=== PATIENT | female | born 1960 | race Caucasian/White ===

== ENCOUNTER 2017-02-14 12:21 | Emergency (ER) | payer OTHER ==
[~2017-02-14] VITALS: Ht 160 cm; Wt 79.2 kg
[~2017-02-14 12:21] MED LIST: ASPEC81 PO; ATV/1 PO; B-CO1TAB53 PO; CETI10TA10 PO; CHOL100010 PO; ELET40TA PO; LEVO88TA3 PO; LINA1CAP PO; LISI10TA PO; MONT1TAB3 PO; MULT-506 PO; NPR500 PO; NXM/40 PO; PROM25TA16 PO; RANI300T PO; SERT-234 PO; SIMV20TA2 PO; TIZA1CAP PO; TRIA0.1C20 TOP; VARE1PAK15 PO
[2017-02-14 12:27] VITALS: TEMP 36.6; Ht 160 cm; Wt 79.2 kg
[2017-02-14 13:06] VITALS: BP 148/90; PULSE 78; O2SAT 98
--- NOTE | 2017-02-14 18:13 | EMERGENCY ROOM VISIT NOTE ---
History First contact with patient: 12:53 Chief Complaint: BITE Stated Complaint: TICK IN BACK ON SPINE AREA History of Present Illness The patient is a 56 year old female who presents to the Emergency Room with complaints of a tick enlodged in her back. The patient is pretty certain that the tick has been attached for less than 24 hours. She was unable to reach it to remove it. Tetanus immunization is up-to-date. The patient denies any prior history of Lyme's disease. Review of Systems 6 system review was performed and was negative except for pertinent positives and negatives as indicated in history of present illness Past Medical/Surgical History Medical Problems: (1) Asthma (2) Carotid artery stenosis (3) section (4) Cholecystectomy (5) Exploratory laparotomy (6) Gastroesophageal reflux disease (7) HTN (hypertension) (8) Hyperlipidemia (9) Thyroid disorder Family History Diabetes mellitus Heart disease Social History Smoking Status: Current Every Day Smoker Alcohol Use: occasionally Marital Status: Housing Status: lives with family Occupation Status: unemployed Current/Historical Medications Scheduled Aspirin Enteric Coated (Ecotrin Or Generic *), 81 MG PO DAILY B-Complex W/Biotin & Folic Aci (Super B-Complex), 1 TAB PO DAILY Cetirizine Hcl (Zyrtec), 10 MG PO DAILY Cholecalciferol (Vitamin D), 2,000 INTER.UNIT PO DAILY Eletriptan (Relpax), 40 MG PO DIRECTED Esomeprazole Magnesium (Nexium), 40 MG PO DAILY Levothyroxine Sodium (Levothyroxine Sodium), 88 MCG PO DAILY Linaclotide (Linzess), 145 MG PO DAILY Lisinopril (Prinivil), 10 MG PO DAILY Lorazepam (Ativan), 1-2 MG PO TID PRN Montelukast Sodium (Singulair), 10 MG PO DAILY Multivitamin (Multivitamin), 1 TAB PO DAILY Ranitidine Hcl (Zantac), 300 MG PO HS Sertraline (Zoloft), MG PO DAILY Simvastatin (Zocor), 20 MG PO QPM Tizanidine Hcl (Tizanidine Hcl), 2 MG PO UD Triamcinolone Acet 0.1% (Aristocort 0.1%), 1 APPLN TOP UD Varenicline Tartrate (Chantix Starting Month Pa), PO UD Scheduled PRN Naproxen (Naprosyn), 500 MG PO BID PRN for Migraine Promethazine HCl (Promethazine HCl), 25-50 MG PO BID PRN for Nausea or Vomiting Allergies Coded Allergies: Balsam (Verified Allergy, Unknown, unknown, 07/19/14) Boric Acid (Verified Allergy, Unknown, unknown, 07/19/14) Formaldehyde (Verified Allergy, Unknown, 07/12/13) Mercaptopurine (Verified Allergy, Unknown, 07/12/13) Metronidazole (Verified Allergy, Unknown, 07/12/13) Potassium Dichromate (Verified Allergy, Unknown, unknown, 07/19/14) Talc (Verified Allergy, Unknown, unknown, 07/19/14) Zinc (Verified Allergy, Unknown, unknown, 07/19/14) Uncoded Allergies: DIBROMODICYAMBUTANE (Allergy, Unknown, UNK, 07/19/14) ANDREW (Allergy, Unknown, ., 07/19/14) PHENYLENEDIAMINE (Allergy, Unknown, blistering, 07/19/14) Physical Exam Vital Signs Date Time Temp Pulse Resp B/P Pulse Ox O2 Delivery O2 Flow Rate FiO2 02/14/17 13:06 78 18 148/90 98 Room Air 02/14/17 12:27 36.6 63 20 139/82 96 Room Air Pain Rating (0-10): 0 Physical Exam CONSTITUTIONAL: Healthy and well nourished. Alert and oriented X 3 with positive affect. HEENT: Normocephalic, atraumatic. Pupils equal, round and reactive. NECK: Full active range of motion without discomfort. INTEGUMENTARY: Examination shows a deer tick embedded within the central lower thoracic region. No peripheral erythema, induration or venous hale. NEUROLOGIC: No focal neurologic deficits noted. Medical Decision & Procedures ED Course Patient history and physical exam were performed. Nurse's notes were reviewed. Tick was successfully removed using a Tick Twister. The patient was encouraged to check herself frequently, at the end of each day. She was inserted follow-up with her family doctor as needed for any developing rash, fever, headaches or other flulike symptoms. The patient was happy with plan of care, and voiced understanding of all discharge instructions. Medical Decision Impression Primary Impression: Tick bite of upper back excluding scapular region Departure Information Dispostion Home / Self-Care Forms HOME CARE DOCUMENTATION FORM, IMPORTANT VISIT INFORMATION Patient Instructions Disease Lyme Prevent, My [facility] Additional Instructions Each evening, standing in front of the mirror and checked herself closely for ticks. Your risk of acquiring Lyme's disease is negligible if the tick is removed within 36-48 hours. Problem Qualifiers Primary Impression: Tick bite of upper back excluding scapular region Encounter type: initial encounter Laterality: unspecified laterality Qualified Codes: S20.469A - Insect bite (nonvenomous) of unspecified back wall of thorax, initial encounter
== END 2017-02-14 13:07 | disposition home or self-care (01) ==
LOC: C.EDB 12:22 → C.EDD 13:07
DX: S20.469A Insect bite (nonvenomous) of unspecified back wall of thorax, initial encounter (principal); I10 Essential (primary) hypertension; E78.5 Hyperlipidemia, unspecified; E07.9 Disorder of thyroid, unspecified; K21.9 Gastro-esophageal reflux disease without esophagitis; I65.29 Occlusion and stenosis of unspecified carotid artery; J45.909 Unspecified asthma, uncomplicated; Z79.82 Long term (current) use of aspirin; Z79.899 Other long term (current) drug therapy; Z82.49 Family history of ischemic heart disease and other diseases of the circulatory system; Z83.3 Family history of diabetes mellitus; F17.200 Nicotine dependence, unspecified, uncomplicated; W57.XXXA Bitten or stung by nonvenomous insect and other nonvenomous arthropods, initial encounter

== ENCOUNTER → 2017-12-29 | Outpatient (CLI) | payer OTHER ==
[~2017-12-29] MED LIST changes: +GADAVIST IV PRN
--- NOTE | 2017-12-29 16:37 | DIAGNOSTIC IMAGING REPORT ---
BRAIN COMBO HISTORY: 57 years-old Female R51 [id number] Pupil [id number] acute headache with history of migraines COMPARISON: Brain MRI 08/03/2010 TECHNIQUE: Multiplanar multisequence MRI of the brain was obtained both with and without the use of 8 mL Gadavist FINDINGS: The large [id number] scalp specialist localizer images demonstrate no gross abnormality. No restricted diffusion to suggest acute or subacute infarction. The midline structures including the corpus callosum, brainstem, optic chiasm, pituitary and pineal glands are unremarkable in the sagittal T1 series. There is no cerebellar tonsillar herniation. Degenerative changes are noted involving the imaged cervical spine. There is no acute intracranial hemorrhage, midline shift, abnormal extra-axial collections or hydrocephalus. Minimal increased T2/FLAIR signal again noted within the right periventricular white matter, likely of no clinical significance. Punctate focus of increased T2/FLAIR signal within the subcortical white matter of the left frontal lobe, image 12 series 7 is also likely of no clinical significance. There is no abnormal intra-axial or extra-axial enhancement. Major flow voids at the level of the skull base appear patent. Mastoid air cells are clear. Moderate mucosal thickening with air-fluid level of the right maxillary sinus compatible with acute sinusitis. Mild rightward bowing and spurring of the nasal septum. Mild mucosal thickening of the ethmoid air cells. The orbits, scalp, calvarium and soft tissues are unremarkable. IMPRESSION: 1. No acute intracranial abnormality. 2. No abnormal enhancement. 3. Paranasal sinus disease as above. The above report was generated using voice recognition software. It may contain grammatical, syntax or spelling errors. Electronically signed by: Royal Fraser M.D. 12/29/2017 4:35 PM Dictated Date/Time: 12/29/2017 4:28 PM
== END | disposition home or self-care (01) ==
LOC: C.MRI 15:23
PROVIDERS: ATTEND Physician Assistant
DX: H57.02 Anisocoria (principal); R51 Headache

== ENCOUNTER 2018-06-10 17:30 | Emergency (ER) | payer OTHER ==
[~2018-06-10] VITALS: Ht 158.8 cm; Wt 80.3 kg
[~2018-06-10 17:30] MED LIST changes: -ASPEC81 PO; +ASPI-319 PO; -B-CO1TAB53 PO; -CHOL100010 PO; -GADAVIST IV PRN; +KETO10TA PO; +MECL1TAB42 PO; -MULT-506 PO; +NAPR-21 PO; -NPR500 PO; +STDN; -TIZA1CAP PO; +TRIA0.1C2; -TRIA0.1C20 TOP; -VARE1PAK15 PO; +VNTHFA/IN INH
[2018-06-10 17:34] VITALS: TEMP 36.6; Ht 158.8 cm; Wt 80.3 kg
[2018-06-10] MEDS ORDERED: LIDOCAINE 1% BUFFERED INJ 20 ML VIAL INFIL STA (17:44)
--- NOTE | 2018-06-10 17:52 | EMERGENCY ROOM VISIT NOTE ---
ED Visit Note First contact with patient: 17:39 Chief Complaint: "Cut between the ring and middle finger". History of Present Illness: This patient is a 57-year-old female who presents to the Emergency Department via private vehicle for evaluation of their left hand laceration. Patient sustained the laceration while attempting to break up a fight between 2 dogs. They report a moderate amount of bleeding initially. They deny any numbness or tingling into the distal extremity. They report no decreased range of motion of the affected digit. She notes the dog's rabies vaccinations are up-to-date. Patient rates her current discomfort as a 4/10. Patient's Tetanus status is currently up-to-date. Medications: As noted below Allergies: As noted below PMH: No pertinent SHx: Patient lives locally ROS: All pertinent positive and negative review of systems are appropriately documented in the History of Present Illness. Physical Exam: VITAL SIGNS - Vital signs and nursing notes were reviewed. Stable. GENERAL -57-year-old female appearing her stated age who is in no acute distress. Communicates well with provider and answers questions appropriately. SKIN - There is a 1.5 cm long laceration noted that is parallel to the fingers, in the webspace between the third and fourth digit. The edges gape apart with traction. No foreign bodies appreciated. Upon further examination there are no deep structures including vessel, tendon, or bony structures appreciated. There is no active bleeding noted. MUSCULOSKELETAL - Laceration as described above. +5/5 strength appreciated of the affected digit. Full range of motion of the affected digit. NEUROLOGIC - Spinothalamic tract was found to be intact with ability to discriminate sharp versus dull sensation. No sensory defects of the dorsal column were appreciated utilizing light touch for evaluation. VASCULAR - Capillary refill was brisk. IMAGING: L FINGER(S) MIN 2 VIEWS ROUTINE CLINICAL HISTORY: 57 years-old Female presenting with L 3-4 interdigital laceration/puncture wound by dog nail. TECHNIQUE: Frontal, oblique, and lateral views of the left third and fourth fingers were obtained. COMPARISON: None. FINDINGS: At the site of clinical concern in the interweb space between the third and fourth finger, soft tissue emphysema present. Gas tracks proximally to the level of the intermetatarsal heads. No subjacent osseous abnormality. No acute fracture or malalignment. No advanced degenerative change. IMPRESSION: 1. No acute osseous injury. 2. Soft tissue emphysema in the third interweb space consistent with the reported injury. Correlate clinically to exclude cellulitis/soft tissue infection. Electronically signed by: Inocencio Glover M.D. 06/10/2018 6:08 PM Dictated Date/Time: 06/10/2018 6:06 PM ED Course: Patient was seen and evaluated by myself. Risks s and benefits of performing primary wound closure versus no repair were discussed with the patient who verbalizes understanding. Verbal consent was obtained prior to performing the procedure. 4 cc of 1% buffered lidocaine without epinephrine was used to perform local anesthetization of the third and fourth digit hand laceration. The wound was cleansed and prepped in the typical sterile fashion utilizing normal saline and Betadine. The wound was sterilely draped. Once proper anesthetization was established, the wound was further examined and demonstrated no deep involvement but it does track anteriorly which was thoroughly irrigated with Betadine and normal saline. The wound was copiously irrigated with normal saline and Betadine. The wound was closed using 4 simple, 5-0 nylon sutures with the wound edges being well approximated. Patient tolerated the procedure well. No complications were met. The wound was cleansed and dressed with a Bacitracin dressing. A metal splint was applied to the finger for comfort. Augmentin added to prevent infection. She is to follow with orthopedics if she has decreased range of motion. She was thoroughly educated upon risk of infection. Patient educated on worrisome symptoms for return visit to the Emergency Department. Patient discharged to home in good condition. In the evaluation and treatment of this patient, the following differential diagnoses were considered: Finger Fracture, Finger Dislocation, Finger Sprain, Finger Contusion, Jersey Finger, or Mallet Finger. Problem List Medical Problems: (1) Asthma Status: Chronic (2) Carotid artery stenosis Status: Chronic (3) section Status: Resolved (4) Cholecystectomy Status: Resolved (5) Exploratory laparotomy Status: Resolved (6) Gastroesophageal reflux disease Status: Chronic (7) HTN (hypertension) Status: Chronic (8) Hyperlipidemia Status: Chronic (9) Thyroid disorder Status: Chronic Current/Historical Medications Scheduled Amoxicillin & Pot Clavulanate (Augmentin 875-125 mg), 1 TAB PO BID Aspirin Enteric Coated (Ecotrin Or Generic), 81 MG PO QPM Cetirizine Hcl (Zyrtec), 10 MG PO DAILY Eletriptan (Relpax), 40 MG PO DIRECTED Esomeprazole Magnesium (Nexium), 40 MG PO DAILY Levothyroxine Sodium (Levothyroxine Sodium), 88 MCG PO DAILY Linaclotide (Linzess), 145 MG PO DAILY Lisinopril (Prinivil), 10 MG PO DAILY Lorazepam (Ativan), 1-2 MG PO TID PRN Montelukast Sodium (Singulair), 10 MG PO DAILY Ranitidine Hcl (Zantac), 300 MG PO HS Sertraline (Zoloft), 100 MG PO QPM Simvastatin (Zocor), 20 MG PO QPM Triamcinolone Acetonide (Topic (Triderm), DIRECTED Scheduled PRN Albuterol Hfa (Ventolin Hfa), 2-4 PUFFS INH Q6H PRN for SOB/Wheezing Butorphanol Tartrate (Butorphanol Tartrate), 1 SPRAY NA DAILY PRN for Migraine Ketorolac Tromethamine (Toradol), 10-20 MG PO BID PRN for Pain Meclizine Hcl (Meclizine Hcl), 1 TAB PO TID PRN for Dizziness or Vertigo Naproxen (Naprosyn), 500 MG PO BID PRN for Migraine Promethazine HCl (Promethazine HCl), 25-50 MG PO BID PRN for Nausea or Vomiting Allergies Coded Allergies: Balsam (Verified Allergy, Mild, ITCHY, 06/10/18) Boric Acid (Verified Allergy, Mild, ITCHY, 06/10/18) Formaldehyde (Verified Allergy, Mild, ITCHY, 06/10/18) Mercaptopurine (Verified Allergy, Mild, ITCHY, 06/10/18) Metronidazole (Verified Allergy, Mild, ITCHY, 06/10/18) Potassium Dichromate (Verified Allergy, Mild, ITCHY, 06/10/18) Talc (Verified Allergy, Mild, ITCHY, 06/10/18) Zinc (Verified Allergy, Mild, ITCHY, 06/10/18) Uncoded Allergies: DIBROMODICYAMBUTANE (Allergy, Mild, ITCHY, 04/21/18) ANDREW (Allergy, Mild, ITCHY, BUMPS ON SKIN, 04/21/18) PHENYLENEDIAMINE (Allergy, Mild, blistering, 04/21/18) Vital Signs Date Time Temp Pulse Resp B/P (MAP) Pulse Ox O2 Delivery O2 Flow Rate FiO2 06/10/18 18:50 88 20 147/68 97 06/10/18 17:34 36.6 88 20 148/65 97 Room Air Departure Information Impression Primary Impression: Puncture wound of hand, left Dispostion Home / Self-Care Condition GOOD Prescriptions Amoxicillin & Pot Clavulanate (Augmentin 875-125 mg) 1 Tab Tab 1 TAB PO BID for 9 Days, #18 TAB Prov: Omar Alexandra PA-C 06/10/18 Referrals Angelika Topete MD (PCP) Matthew Jimenez MD Patient Instructions [facility] Additional Instructions Discharge Instructions: You have received sutures on your left hand. These sutures are NOT dissolvable and WILL need to be removed by a health care provider in 12-14 days. You can return to the Emergency Department or contact your Primary Care Provider to have the sutures removed. Augmentin 1 tablet every 12 hours for 10 days to prevent infection. If you experience difficulties with movement of the hand please follow-up with a hand specialist. Please wear the splint for comfort until the sutures are removed. Proper wound care is essential for adequate wound healing and infection prevention. You can shower and clean the wound with soap and water. Do not scour over the wound, pat dry with a towel. Do not submerse the wound (i.e. bathe or dish wash) until the sutures have been removed. You can use an antibiotic ointment with a dressing over the wound for the next 3-4 days. After this time you may leave the wound dry and open to the air. If crust develops over the wound you can use a Q-tip to apply a 1:1 peroxide:water solution to clean the wound. Look for signs of infection of the wound including: increased pain, swelling, foul discharge, streaking, or increased temperature. If any of these are noticed you should return to the Emergency Department for further assessment and treatment. As with any laceration you may have received nerve damage to the surrounding tissues. This damage may or may not be permanent. You should keep the area covered with sunscreen for the first 6 months to 1 year when at risk for exposure to help minimize scarring. You can also use scar reducing creams or Vitamin E oil to help minimize scarring. For pain control, you can use the following [id number] medicines (if >12 yo): - Regular strength (325mg/tab) Tylenol (acetaminophen) 2 tabs every 4-6 hours as needed. Do not exceed 12 tablets in a 24 hour period. Avoid taking more than 3 grams (3000 mg) of Tylenol per day. This includes any other sources of acetaminophen you may take on a regular basis. - Regular strength (200 mg/tab) Advil (ibuprofen) 1-2 tabs every 4-6 hours as needed. Do not exceed a dose of 3200 mg per day. Return to the emergency department if your symptoms worsen despite treatment course outlined above.
[2018-06-10] MEDS ORDERED: AMOXICIL/CLAVU 875MG HOME PACK PO STA (18:07)
--- NOTE | 2018-06-10 18:09 | DIAGNOSTIC IMAGING REPORT ---
L FINGER(S) MIN 2 VIEWS ROUTINE CLINICAL HISTORY: 57 years-old Female presenting with L 3-4 interdigital laceration/puncture wound by dog nail. TECHNIQUE: Frontal, oblique, and lateral views of the left third and fourth fingers were obtained. COMPARISON: None. FINDINGS: At the site of clinical concern in the interweb space between the third and fourth finger, soft tissue emphysema present. Gas tracks proximally to the level of the intermetatarsal heads. No subjacent osseous abnormality. No acute fracture or malalignment. No advanced degenerative change. IMPRESSION: 1. No acute osseous injury. 2. Soft tissue emphysema in the third interweb space consistent with the reported injury. Correlate clinically to exclude cellulitis/soft tissue infection. Electronically signed by: Inocencio Glover M.D. 06/10/2018 6:08 PM Dictated Date/Time: 06/10/2018 6:06 PM
[2018-06-10] MEDS ORDERED: AMOX875T PO (18:37)
[2018-06-10 18:50] VITALS: BP 147/68; PULSE 88; O2SAT 97
== END 2018-06-10 18:50 | disposition home or self-care (01) ==
LOC: C.EDB 17:33 → C.EDD 18:50
DX: S61.432A Puncture wound without foreign body of left hand, initial encounter (principal); W54.8XXA Other contact with dog, initial encounter; J45.909 Unspecified asthma, uncomplicated; I10 Essential (primary) hypertension; E07.9 Disorder of thyroid, unspecified; K21.9 Gastro-esophageal reflux disease without esophagitis; Z88.8 Allergy status to other drugs, medicaments and biological substances; Z91.09 Other allergy status, other than to drugs and biological substances; Z79.82 Long term (current) use of aspirin; Z79.899 Other long term (current) drug therapy

== ENCOUNTER → 2018-06-19 | Outpatient (CLI) | payer OTHER ==
[~2018-06-19] MED LIST changes: +AMOX875T PO
[2018-06-19 10:41] LABS: HEMOGLOBIN A1C 5.6 % (4.5-5.6)
[2018-06-19 10:48] LABS: ALBUMIN 3.5 gm/dl (3.4-5.0); ALKALINE PHOSPHATASE 112 U/L (45-117); ALT/SGPT 19 U/L (12-78); AST/SGOT 15 U/L (15-37); BLOOD UREA NITROGEN 13 mg/dl (7-18); CALCIUM 8.3 mg/dl (8.5-10.1); CARBON DIOXIDE 24 mmol/L (21-32); CHOLESTEROL 175 mg/dl (0-200); CREATININE 0.85 mg/dl (0.60-1.20); GLUCOSE 97 mg/dl (70-99); LDL CHOLESTEROL CALCULATED 104 mg/dl; POTASSIUM 4.2 mmol/L (3.5-5.1); SODIUM 142 mmol/L (136-145); TOTAL PROTEIN 7.1 gm/dl (6.4-8.2)
== END | disposition home or self-care (01) ==
LOC: C.LABBC 08:21
PROVIDERS: ATTEND Family Medicine
DX: E78.5 Hyperlipidemia, unspecified (principal); E03.9 Hypothyroidism, unspecified; I10 Essential (primary) hypertension

== ENCOUNTER 2021-01-02 15:04 | Observation (INO) ==
[2021-01-02] MEDS ORDERED: ASPIRIN CHEW 324 MG PO STA (16:23)
[2021-01-02 16:28] LABS: Basophils # (auto) 0.05 K/uL (0-0.2); Basophils % (auto) 0.5 %; Eosinophils # (auto) 0.19 K/uL (0-0.5); Eosinophils % (auto) 1.8 %; Hemoglobin 13.4 g/dL (12.0-16.0); Immature Granulocytes # (auto) 0.02 K/uL (0.00-0.02); Immature Granulocytes % (auto) 0.2 %; Lymphocytes # (auto) 2.34 K/uL (1.2-3.4); Lymphocytes % (auto) 22.8 %; Mean Corpuscular Hemoglobin 29.4 pg (25-34); Mean Corpuscular Hgb Conc 33.5 g/dL (32-36); Mean Corpuscular Volume 87.7 fL (80-100); Mean Platelet Volume 9.7 fL (7.4-10.4); Monocytes # (auto) 0.72 K/uL (0.11-0.59); Neutrophils # (auto) 6.96 K/uL (1.4-6.5); Neutrophils % (auto) 67.7 %; Platelet Count 215 K/uL (130-400); RDW Coefficient of Variation 15.6 % (11.5-14.5); RDW Standard Deviation 50.3 fL (36.4-46.3); Red Blood Count 4.56 M/uL (4.2-5.4); White Blood Count 10.28 K/uL (4.8-10.8)
--- NOTE | 2021-01-02 16:29 | Emergency Department Note ---
Impression & Plan Precordial chest pain, Exertional chest pain, MEMBRENO (dyspnea on exertion) ED Provider Note NAME: PIPO BURLESON AGE: 60 SEX: F : 1960 ARRIVES VIA: Walk-In INFORMANT: [Patient] ED PROVIDER(S): [Efrain Sommers MD] CHIEF COMPLAINT: Chest pain HISTORY OF PRESENT ILLNESS: The patient is a 60-year-old female presents with 4 to 5 days of just not feeling well. She has been more fatigued. She feels dizzy when she stands up quickly or stands up from a stooped over position. She has noted some shortness of breath with exertion and some heaviness in her chest with exertion. The shortness of breath and chest heaviness goes away with rest. The heaviness is rated as very mild. She has not noticed radiation of her discomfort. He has had some sweats. No nausea. No vomiting. The patient feels her heart beating irregular at times, she thinks she may be having some extra beats. There has been no fever. She has not had urinary complaints or abdominal pain. She has no diagnosed history of coronary disease. She is a smoker. Her mother had heart disease at a young age. The patient has a history of hypertension and high cholesterol, she is not diabetic. REVIEW OF SYSTEMS: See HPI for pertinent positives and negatives. A total of ten systems were reviewed and were otherwise negative. PMHx/PSHx: See Below SOCIAL HISTORY: See Below. PHYSICAL EXAM: GENERAL: Patient is in no acute distress. HEENT: No acute trauma, normocephalic atraumatic, mucous membranes moist, no nasal congestion, no scleral icterus. NECK: No stridor, no adenopathy, no meningismus, trachea is midline. LUNGS: Clear to auscultation bilaterally, no wheeze, no rhonchi, breath sounds equal. Chest: Nontender chest wall. HEART: Without murmurs gallops or rubs, regular rate and rhythm. ABDOMEN: Soft, nontender, bowel sounds positive, no hernias, no peritonitis. EXTREMITIES: No cyanosis or edema, full range of motion of all the joints without pain or difficulty, no signs for acute trauma. NEUROLOGIC: Oriented x 3, no acute motor or sensory deficits, no focal weakness. SKIN: No rash, no jaundice, no diaphoresis. DIFFERENTIAL DIAGNOSIS: Cardiac ischemia, aortic dissection, pulmonary embolism, pneumothorax, pneumonia, pericarditis, myocarditis, esophageal rupture, GERD, cholecystitis, pancreatitis, musculoskeletal, as well as other pathologies. EMERGENCY DEPARTMENT COURSE/PROCEDURES: ECG: Indication was chest pain. The ECG shows a sinus rhythm with a rate of 68 with PACs. There is no ST elevation, no PVCs. The QTc is 459. Continuous Cardiac Monitoring: An order was placed for continuous cardiac monitoring. The monitor shows a rate of 73 with normal sinus rhythm. MEDICAL DECISION MAKING: There is no leukocytosis or concerning anemia. There is a normal platelet count. No significant electrolyte abnormality or kidney failure. No concerning liver enzyme elevation. No evidence for pancreatitis. ECG shows a sinus rhythm with some PACs, there was no acute ischemic change. Cardiac enzyme testing x1 is not consistent with acute cardiac injury. Covid testing returned negative. Chest x-ray does not show mediastinal widening, pneumonia or pneumothorax. On exam, patient was chest pain-free and resting comfortably. Patient was given oral aspirin for cardioprotective purposes. The patient presents with exertional chest pain and dyspnea. She has multiple cardiac risk factors. I do think hospitalization is warranted. I did speak with on-call cardiology. I spoke with case management. The on-call hospitalist was consulted. Past Med/Surg History Medical History Arthritis Asthma (12/27/12) Depression with anxiety HTN (hypertension) Hyperlipidemia Hypothyroidism Kidney stone Migraine Vitamin B12 deficiency Vitamin D deficiency Surgical History H/O section H/O tubal ligation Hx of cholecystectomy Family History Unknown Coronary heart disease Diabetes Hypertension Mother Depression Diabetes Lung disease Myocardial infarction Cardiac disorder Brother Depression Alcohol abuse Sister Depression Anxiety Colon cancer Father Cardiac disorder Lung cancer Kidney stones Family/Other Prostate cancer Denies family history of Ovarian cancer Breast cancer Social History Smoking Status: Current every day smoker Tobacco Type: Cigarettes packs per day: 1; Second Hand Exposure: Yes; Hx Alcohol Use: No Hx Substance Use: No Preferred Language: Latvian Communication Ability: Effective Visual Impairment: No Limitations Hearing Ability: Normal marital status: Current Living Situation: Spouse current occupational status: unemployed Feels Safe at Home: Yes Childhood Exposure to Second-Hand Smoke: Yes Dental Care, Regularly: No Physical Activity Frequency: Daily Seatbelt Use: always Sunscreen Use: No Allergies Allergies Allergy/AdvReac Type Severity Reaction Status Date / Time [id number] Allergy Intermediate hives, Verified 07/29/20 10:28 [From Ajovy Autoinjector] vomiting balsam natalee Allergy Mild ITCHY Verified 07/29/20 10:28 boric acid Allergy Mild ITCHY Verified 07/29/20 10:28 formaldehyde Allergy Mild ITCHY Verified 07/29/20 10:28 mercaptopurine Allergy Mild ITCHY Verified 07/29/20 10:28 metronidazole Allergy Mild ITCHY Verified 07/29/20 10:28 talc Allergy Mild ITCHY Verified 07/29/20 10:28 zinc Allergy Mild ITCHY Verified 07/29/20 10:28 animal dander Allergy Unknown Verified 01/02/21 17:57 atorvastatin [From Lipitor] Allergy Unknown Verified 01/02/21 17:57 azithromycin Allergy Unknown Verified 01/02/21 17:57 carbamazepine [From Tegretol] Allergy Unresponsiv Verified 01/02/21 17:57 e divalproex sodium Allergy Unknown Verified 01/02/21 17:57 [From Depakote] duloxetine [From Cymbalta] Allergy Unknown Verified 01/02/21 17:57 house dust Allergy Unknown Verified 01/02/21 17:57 imipramine Allergy Unknown Verified 01/02/21 17:57 latex Allergy Unknown Verified 01/02/21 17:57 mold Allergy Unknown Verified 01/02/21 17:57 nickel Allergy Unknown Verified 01/02/21 17:57 nortriptyline Allergy Unknown Verified 01/02/21 17:57 omeprazole Allergy Unknown Verified 01/02/21 17:57 ragweed pollen Allergy Unknown Verified 01/02/21 17:57 sulfamethoxazole Allergy Unknown Verified 01/02/21 17:57 [From Bactrim] trimethoprim [From Bactrim] Allergy Unknown Verified 01/02/21 17:57 venlafaxine Allergy Unknown Verified 01/02/21 17:57 DIBROMODICYAMBUTANE Allergy Mild ITCHY Uncoded 07/29/20 10:28 PHENYLENEDIAMINE Allergy Mild blistering Uncoded 07/29/20 10:28 Potassium Dichromate Allergy Mild ITCHY Uncoded 07/29/20 10:28 Qudexy XR CS24 Allergy Unknown Unknown Uncoded 01/02/21 17:57 Home Meds Home Medications Medication Instructions Recorded Confirmed ascorbic acid (vitamin C) 500 mg 500 mg PO DAILY cap 06/02/19 01/02/21 capsule aspirin 81 mg tablet,delayed 81 mg PO DAILY tab 06/02/19 01/02/21 release lorazepam 0.5 mg tablet 0.5 mg PO TID PRN tab 06/02/19 01/02/21 qtayrspysrkz-Pz-gvoc-minerals 1 tab PO DAILY tab 06/02/19 01/02/21 triamcinolone acetonide 0.1 % 1 appln TOPICAL BID PRN #1 gm 06/02/19 01/02/21 topical cream vitamin B complex 1 tab PO DAILY 06/02/19 01/02/21 clobetasol 0.05 % topical cream 1 appln TOPICAL BID PRN gm 06/19/19 01/02/21 omeprazole 40 mg capsule,delayed 40 mg PO DAILY 10/04/19 01/02/21 release vitamin E 0 unit PO DAILY 01/02/21 01/02/21 Previous Rx's Medication Instructions Recorded levothyroxine 100 mcg tablet 100 mcg PO DAILY #30 tab 05/01/20 simvastatin 20 mg tablet 20 mg PO QPM #30 tab 06/06/20 baclofen 10 mg tablet 10 mg PO BID PRN #60 tab 07/16/20 meclizine 25 mg tablet 25 mg PO TID PRN #90 tab 07/16/20 naproxen 500 mg tablet 500 mg PO BID PRN #30 tab 07/16/20 ondansetron HCl 4 mg tablet 4 mg PO BID PRN #30 tab 07/16/20 sumatriptan succinate 6 mg/0.5 mL 6 mg SUBCUT .COMPLEX #5 ml 07/16/20 subcutaneous pen injector albuterol sulfate 90 mcg/actuation 2 puff INHALATION .COMPLEX PRN 07/29/20 aerosol inhaler #8.5 g sertraline 100 mg tablet 150 mg PO DAILY #135 tab 10/23/20 lisinopril 10 mg tablet 10 mg PO DAILY #90 tab 12/03/20 montelukast 10 mg tablet 10 mg PO DAILY #30 tab 12/03/20 Results & Data (ED) Vital Signs Vital Signs - 24 hr 01/02/21 15:11 01/02/21 16:05 01/02/21 16:15 Temperature 36.3 C L Temperature Source Temporal Artery Scan Pulse Rate 73 64 Pulse Rate from SpO2 Sensor 65 Pulse Rhythm Regular Pulse Strength Normal Respiratory Rate 20 15 Respiratory Effort / Characteristics Non-Labored Spontaneous Respiratory Depth Normal Respiratory Pattern Regular Blood Pressure 150/74 H 141/83 H Blood Pressure Mean 99 102 Blood Pressure Position Sitting Pulse Oximetry 97 96 Oxygen Delivery Method Room Air Room Air Sepsis Recent Fever Within 48 Hours No Sepsis New/Unexplained Change in Mental Status No Sepsis Action Taken by Nursing No Action Required 01/02/21 16:23 01/02/21 16:30 01/02/21 17:00 Temperature Temperature Source Pulse Rate 61 61 Pulse Rate from SpO2 Sensor 60 55 L Pulse Rhythm Pulse Strength Respiratory Rate 21 17 Respiratory Effort / Characteristics Respiratory Depth Respiratory Pattern Blood Pressure 113/57 L 123/62 Blood Pressure Mean 75 82 Blood Pressure Position Pulse Oximetry 98 96 94 Oxygen Delivery Method Room Air Sepsis Recent Fever Within 48 Hours Sepsis New/Unexplained Change in Mental Status Sepsis Action Taken by Nursing 01/02/21 17:30 01/02/21 18:00 01/02/21 18:31 Temperature Temperature Source Pulse Rate 63 62 62 Pulse Rate from SpO2 Sensor 62 61 63 Pulse Rhythm Pulse Strength Respiratory Rate 18 17 14 Respiratory Effort / Characteristics Respiratory Depth Respiratory Pattern Blood Pressure 107/64 111/47 L 138/62 Blood Pressure Mean 78 68 87 Blood Pressure Position Pulse Oximetry 96 96 95 Oxygen Delivery Method Sepsis Recent Fever Within 48 Hours Sepsis New/Unexplained Change in Mental Status Sepsis Action Taken by Nursing 01/02/21 19:00 01/02/21 19:30 Temperature Temperature Source Pulse Rate 63 65 Pulse Rate from SpO2 Sensor 62 65 Pulse Rhythm Pulse Strength Respiratory Rate 15 20 Respiratory Effort / Characteristics Respiratory Depth Respiratory Pattern Blood Pressure 104/60 142/77 H Blood Pressure Mean 74 98 Blood Pressure Position Pulse Oximetry 96 96 Oxygen Delivery Method Room Air Room Air Sepsis Recent Fever Within 48 Hours Sepsis New/Unexplained Change in Mental Status Sepsis Action Taken by Detention Medications Current Medication List: was personally reviewed by me Laboratory Data Attestation: I reviewed the patient's lab results. Result diagrams: 01/02/21 16:20 01/02/21 17:07 Lab Results 01/02/21 01/02/2121 Range/Units 16:20 16:20 17:07 WBC 10.28 (4.8-10.8) K/uL RBC 4.56 (4.2-5.4) M/uL Hgb 13.4 (12.0-16.0) g/dL Hct 40.0 (37-47) % MCV 87.7 (80-100) fL MCH 29.4 (25-34) pg MCHC 33.5 (32-36) g/dL RDW Std Deviation 50.3 H (36.4-46.3) fL RDW Coeff of Audi 15.6 H (11.5-14.5) % Plt Count 215 (130-400) K/uL MPV 9.7 (7.4-10.4) fL Immature Gran % (Auto) 0.2 % Neut % (Auto) 67.7 % Lymph % (Auto) 22.8 % Converse % (Auto) 7.0 % Eos % (Auto) 1.8 % Baso % (Auto) 0.5 % Neut # (Auto) 6.96 H (1.4-6.5) K/uL Lymph # (Auto) 2.34 (1.2-3.4) K/uL Converse # (Auto) 0.72 H (0.11-0.59) K/uL Eos # (Auto) 0.19 (0-0.5) K/uL Baso # (Auto) 0.05 (0-0.2) K/uL Immature Gran # (Auto) 0.02 (0.00-0.02) K/uL Sodium 136 (136-145) mmol/L Potassium 3.8 (3.5-5.1) mmol/L Chloride 109 H (98-107) mmol/L Carbon Dioxide 23 (21-32) mmol/L Anion Gap 4.0 (3-11) BUN 9 (7-18) mg/dl Creatinine 0.82 (0.6-1.2) mg/dl Est Cr Clr Drug Dosing 75.0 ml/min Est GFR ( Amer) 91.4 Est GFR (Non-Af Amer) 78.9 BUN/Creatinine Ratio 11.1 (10-20) Glucose 89 (70-99) mg/dl Calcium 9.6 (8.5-10.1) mg/dl Magnesium 2.3 (1.8-2.4) mg/dl Total Bilirubin 0.3 (0.2-1) mg/dl AST 18 (15-37) U/L ALT 24 (12-78) U/L Alkaline Phosphatase 100 (45-117) U/L Troponin I < 0.015 (0-0.045) ng/ml Total Protein 7.7 (6.4-8.2) gm/dl Albumin 3.8 (3.4-5.0) gm/dl Globulin 3.9 (2.5-4.0) gm/dl Albumin/Globulin Ratio 1.0 (0.9-2) Lipase 112 (73-393) U/L COVID-19 Eval Order SARS-CoV-2, RNA, NAAT (NEGATIVE) 01/02/21 01/02/21 Range/Units 19:22 19:22 WBC (4.8-10.8) K/uL RBC (4.2-5.4) M/uL Hgb (12.0-16.0) g/dL Hct (37-47) % MCV (80-100) fL MCH (25-34) pg MCHC (32-36) g/dL RDW Std Deviation (36.4-46.3) fL RDW Coeff of Audi (11.5-14.5) % Plt Count (130-400) K/uL MPV (7.4-10.4) fL Immature Gran % (Auto) % Neut % (Auto) % Lymph % (Auto) % Converse % (Auto) % Eos % (Auto) % Baso % (Auto) % Neut # (Auto) (1.4-6.5) K/uL Lymph # (Auto) (1.2-3.4) K/uL Converse # (Auto) (0.11-0.59) K/uL Eos # (Auto) (0-0.5) K/uL Baso # (Auto) (0-0.2) K/uL Immature Gran # (Auto) (0.00-0.02) K/uL Sodium (136-145) mmol/L Potassium (3.5-5.1) mmol/L Chloride (98-107) mmol/L Carbon Dioxide (21-32) mmol/L Anion Gap (3-11) BUN (7-18) mg/dl Creatinine (0.6-1.2) mg/dl Est Cr Clr Drug Dosing ml/min Est GFR ( Amer) Est GFR (Non-Af Amer) BUN/Creatinine Ratio (10-20) Glucose (70-99) mg/dl Calcium (8.5-10.1) mg/dl Magnesium (1.8-2.4) mg/dl Total Bilirubin (0.2-1) mg/dl AST (15-37) U/L ALT (12-78) U/L Alkaline Phosphatase (45-117) U/L Troponin I (0-0.045) ng/ml Total Protein (6.4-8.2) gm/dl Albumin (3.4-5.0) gm/dl Globulin (2.5-4.0) gm/dl Albumin/Globulin Ratio (0.9-2) Lipase (73-393) U/L COVID-19 [facility], RNA, NAAT NEGATIVE (NEGATIVE) Administered Medications Discontinued Medications Aspirin (Aspirin Chew 324 Mg) 324 mg PO NOW STA Stop: 01/02/21 16:24 Last Admin: 01/02/21 16:33 Dose: 324 mg Documented by: [id number] Imaging Data Radiologist's Impression: SINGLE VIEW CHEST CLINICAL HISTORY: Atypical chest pain. FINDINGS: An AP, portable, upright chest radiograph is compared to study dated 10/10/2008. Correlation is made with chest CT dated 02/14/2015. The cardiomediastinal silhouette is unremarkable. Emphysematous change and chronic interstitial thickening is similar to previous. There is no airspace consolidation or pleural effusion. No pneumothorax is seen. The bony thorax is grossly intact. IMPRESSION: No active disease in the chest. Discharge Plan Visit Data Chief Complaint: Cardiac Assessment Stated Complaint: HEART BEATING FAST, SKIPPING BEAT, FAINT ED Provider: Efrain Sommers Discharge Problem: Precordial chest pain, Exertional chest pain, MEMBRENO (dyspnea on exertion) Patient Disposition: Admitted As Inpatient Condition: Good Forms Stand Alone Forms: My [employer] Prescriptions Prescriptions: No Action levothyroxine 100 mcg tablet 100 mcg PO DAILY Qty: 30 RF: 5 simvastatin 20 mg tablet 20 mg PO QPM Qty: 30 RF: 5 albuterol sulfate [Ventolin HFA] 90 mcg/actuation HFA aerosol inhaler 2 puff inhalation .COMPLEX PRN (Reason: shortness of breath or wheezing) Qty: 8.5 RF: 3 sertraline 100 mg tablet 150 mg PO DAILY Qty: 135 RF: 1 lisinopril 10 mg tablet 10 mg PO DAILY Qty: 90 RF: 1 montelukast 10 mg tablet 10 mg PO DAILY Qty: 30 RF: 6 omeprazole 40 mg capsule,delayed release(DR/EC) 40 mg PO DAILY RF: 0 aspirin 81 mg tablet,delayed release (DR/EC) 81 mg PO DAILY RF: 0 vitamin B complex [B Complex-Vitamin B12] tablet 1 tab PO DAILY RF: 0 lorazepam 0.5 mg tablet 0.5 mg PO TID PRN (Reason: anxiety) RF: 0 Multiple Vitamin, Womens tablet 1 tab PO DAILY RF: 0 ascorbic acid (vitamin C) 500 mg capsule 500 mg PO DAILY RF: 0 triamcinolone acetonide 0.1 % cream 1 appln topical BID PRN (Reason: flare ups) Qty: 1 RF: 0 clobetasol 0.05 % cream 1 appln topical BID PRN (Reason: flare ups) RF: 0 sumatriptan succinate 6 mg/0.5 mL pen injector 6 mg subcut .COMPLEX Qty: 5 RF: 5 ondansetron HCl [Zofran] 4 mg tablet 4 mg PO BID PRN (Reason: nausea and vomiting) Qty: 30 RF: 3 meclizine 25 mg tablet 25 mg PO TID PRN (Reason: dizziness) Qty: 90 RF: 1 naproxen 500 mg tablet 500 mg PO BID PRN (Reason: pain) Qty: 30 RF: 1 baclofen 10 mg tablet 10 mg PO BID PRN (Reason: muscle spasm) Qty: 60 RF: 3 vitamin E 400 unit Tablet 0 unit PO DAILY RF: 0 Referrals Referrals: Angelika Topete MD [Primary Care Provider] -
[2021-01-02 16:59] LABS: Alanine Aminotransferase 24 U/L (12-78); Albumin Level 3.8 gm/dl (3.4-5.0); Alkaline Phosphatase 100 U/L (45-117)
[2021-01-02 17:00] LABS: BUN Creatinine Ratio 11.1 (10-20); Bilirubin,Total 0.3 mg/dl (0.2-1); Blood Urea Nitrogen 9 mg/dl (7-18); Calcium 9.6 mg/dl (8.5-10.1); Carbon Dioxide 23 mmol/L (21-32); Chloride 109 mmol/L (98-107); Est GFR (African American) 91.4; Est GFR (Non-African American) 78.9; Globulin 3.9 gm/dl (2.5-4.0); Glucose 89 mg/dl (70-99); Lipase 112 U/L (73-393); Sodium 136 mmol/L (136-145); Total Protein 7.7 gm/dl (6.4-8.2); Troponin I < 0.015 ng/ml (0-0.045)
--- NOTE | 2021-01-02 17:02 | XRay Report ---
SINGLE VIEW CHEST CLINICAL HISTORY: Atypical chest pain. FINDINGS: An AP, portable, upright chest radiograph is compared to study dated 10/10/2008. Correlatio n is made with chest CT dated 02/14/2015. The cardiomediastinal silhouette is unremarkable. Emphysemat ous change and chronic interstitial thickening is similar to previous. There is no airspace consolida tion or pleural effusion. No pneumothorax is seen. The bony thorax is grossly intact. IMPRESSION: No active disease in the chest. ACT 112: Negative or not required by law. Electronically signed by: Efrain Pringle M.D. 01/02/2021 5:00 PM
[2021-01-02 17:33] LABS: Potassium 3.8 mmol/L (3.5-5.1)
[2021-01-02 17:39] LABS: Magnesium 2.3 mg/dl (1.8-2.4)
--- NOTE | 2021-01-02 19:14 | History & Physical Report ---
Date of Service January 02, 2021 Assessment & Plan (1) Exertional chest pain: Presents with typical angina Onset last 4 days-unstable angina Troponins negative, ECG with frequent PACs With cardiac risk factors of hypertension, smoking, and family history -Admit to PCU for telemetry monitoring -Consult cardiology for further evaluation -Trend serial troponin, check echocardiogram -N.p.o. after midnight in case of either stress test or cardiac catheterization but most likely this will wait till Tuesday as long as she remains chest pain- free -Nitroglycerin and morphine as needed for pain -Start aspirin, therapeutic Lovenox 1 mg/KG SQ twice daily -Blood pressure is a little low to start metoprolol although with frequent ectopy, she may benefit from this-we will try low-dose and hold her home lisinopril Check lipid panel in the morning, continue simvastatin 20 for now (2) PAC (premature atrial contraction): With frequent PACs on ECG and telemetry associated with palpitations Starting low-dose metoprolol as above Continue to follow on telemetry Echocardiogram (3) HTN (hypertension): As above, hold home lisinopril and start low-dose metoprolol (4) Depression with anxiety: Stable Continue home lorazepam as needed and sertraline 150 mg p.o. once daily (5) Gastroesophageal reflux disease: Stable Continue home PPI (6) Hyperlipidemia: Check lipid panel in the morning Continue simvastatin for now but may need to switch to high intensity atorvastatin or rosuvastatin (7) Hypothyroidism: TSH normal in 09/2020 Continue home levothyroxine (8) Irritable bowel syndrome: No acute issues (9) Migraine, unspecified, not intractable, without status migrainosus: No acute issues Takes Imitrex as needed (10) Obesity: BMI 31.2 Needs weight loss counseling (11) Smokes 1 pack of cigarettes per day: Ongoing smoker, is contemplating quitting but not ready to just yet, counseled for cessation is given And RTC as needed (12) Vitamin B12 deficiency: Continue home B12 supplement (13) Vitamin D deficiency: Noted (14) Asthma: No acute issues Continue albuterol as needed (15) DVT prophylaxis: Lovenox therapeutic dosing Disposition-bring in on observation to PCU Full code History of Present Illness Chief Complaint: Chest heaviness Primary Care Provider: Angelika Topete MD This patient is a 60-year-old female with a 30-esfg-wxbh smoking history, HTN, hyperlipidemia, hypothyroidism, migraines, and a positive family history in her mother of ID in her 50s, who presents to the ER with 4 days of exertional chest heaviness associated with shortness of breath, diaphoresis, and lightheadedness that was relieved with rest. There is no radiation of the chest heaviness. She also describes 4 days of feeling heart palpitations like her heart is skipping a beat. She denies any rapid heartbeat or syncope. Before 4 days ago, she did not have any chest heaviness or chest pains except for an occasional sharp twinge of more left-sided chest pain which was nothing like it has been going on the last few days. She did not try taking anything to make it go away. Each time, the chest heaviness lasts about 20 minutes and goes away with rest. In the ER, her troponin was negative, CBC and CMP and lipase were otherwise unremarkable. Her Covid-19 testing was negative. Her chest x-ray was normal. Her ECG showed sinus rhythm, rate 68, with PACs, otherwise no ischemic changes. Her telemetry showed frequent PACs throughout our entire interview which were symptomatic. The ER physician discussed her care with the gyn on-call who recommended admission and possible cardiac catheterization versus stress test and given that she is high risk, consideration for therapeutic anticoagulation. Allergies Allergy/AdvReac Type Severity Reaction Status Date / Time fremanezumab-vfrm Allergy Intermediate hives, Verified 07/29/20 10:28 [From Ajovy Autoinjector] vomiting balsam natalee Allergy Mild ITCHY Verified 07/29/20 10:28 boric acid Allergy Mild ITCHY Verified 07/29/20 10:28 formaldehyde Allergy Mild ITCHY Verified 07/29/20 10:28 mercaptopurine Allergy Mild ITCHY Verified 07/29/20 10:28 metronidazole Allergy Mild ITCHY Verified 07/29/20 10:28 talc Allergy Mild ITCHY Verified 07/29/20 10:28 zinc Allergy Mild ITCHY Verified 07/29/20 10:28 animal dander Allergy Unknown Verified 01/02/21 17:57 atorvastatin [From Lipitor] Allergy Unknown Verified 01/02/21 17:57 azithromycin Allergy Unknown Verified 01/02/21 17:57 carbamazepine [From Tegretol] Allergy Unresponsiv Verified 01/02/21 17:57 e divalproex sodium Allergy Unknown Verified 01/02/21 17:57 [From Depakote] duloxetine [From Cymbalta] Allergy Unknown Verified 01/02/21 17:57 house dust Allergy Unknown Verified 01/02/21 17:57 imipramine Allergy Unknown Verified 01/02/21 17:57 latex Allergy Unknown Verified 01/02/21 17:57 mold Allergy Unknown Verified 01/02/21 17:57 nickel Allergy Unknown Verified 01/02/21 17:57 nortriptyline Allergy Unknown Verified 01/02/21 17:57 omeprazole Allergy Unknown Verified 01/02/21 17:57 ragweed pollen Allergy Unknown Verified 01/02/21 17:57 sulfamethoxazole Allergy Unknown Verified 01/02/21 17:57 [From Bactrim] trimethoprim [From Bactrim] Allergy Unknown Verified 01/02/21 17:57 venlafaxine Allergy Unknown Verified 01/02/21 17:57 DIBROMODICYAMBUTANE Allergy Mild ITCHY Uncoded 07/29/20 10:28 PHENYLENEDIAMINE Allergy Mild blistering Uncoded 07/29/20 10:28 Potassium Dichromate Allergy Mild ITCHY Uncoded 07/29/20 10:28 Qudexy XR CS24 Allergy Unknown Unknown Uncoded 01/02/21 17:57 Home Medications Medication Instructions Recorded Confirmed Type ascorbic acid (vitamin C) 500 mg 500 mg PO DAILY cap 06/02/19 01/02/21 History capsule aspirin 81 mg tablet,delayed 81 mg PO DAILY tab 06/02/19 01/02/21 History release lorazepam 0.5 mg tablet 0.5 mg PO TID PRN tab 06/02/19 01/02/21 History ifxbkdbyvkld-Nx-fslz-minerals 1 tab PO DAILY tab 06/02/19 01/02/21 History triamcinolone acetonide 0.1 % 1 appln TOPICAL BID PRN #1 gm 06/02/19 01/02/21 History topical cream vitamin B complex 1 tab PO DAILY 06/02/19 01/02/21 History clobetasol 0.05 % topical cream 1 appln TOPICAL BID PRN gm 06/19/19 01/02/21 History omeprazole 40 mg capsule,delayed 40 mg PO DAILY 10/04/19 01/02/21 History release levothyroxine 100 mcg tablet 100 mcg PO DAILY #30 tab 05/01/20 01/02/21 Rx simvastatin 20 mg tablet 20 mg PO QPM #30 tab 06/06/20 01/02/21 Rx baclofen 10 mg tablet 10 mg PO BID PRN #60 tab 07/16/20 01/02/21 Rx meclizine 25 mg tablet 25 mg PO TID PRN #90 tab 07/16/20 01/02/21 Rx naproxen 500 mg tablet 500 mg PO BID PRN #30 tab 07/16/20 01/02/21 Rx ondansetron HCl 4 mg tablet 4 mg PO BID PRN #30 tab 07/16/20 01/02/21 Rx sumatriptan succinate 6 mg/0.5 mL 6 mg SUBCUT .COMPLEX #5 ml 07/16/20 01/02/21 Rx subcutaneous pen injector albuterol sulfate 90 mcg/actuation 2 puff INHALATION .COMPLEX PRN 07/29/20 01/02/21 Rx aerosol inhaler #8.5 g sertraline 100 mg tablet 150 mg PO DAILY #135 tab 10/23/20 01/02/21 Rx lisinopril 10 mg tablet 10 mg PO DAILY #90 tab 12/03/20 01/02/21 Rx montelukast 10 mg tablet 10 mg PO DAILY #30 tab 12/03/20 01/02/21 Rx vitamin E 0 unit PO DAILY 01/02/21 01/02/21 History Past Med/Surg History Medical History (Updated 01/02/21 @ 23:13 by Roxi Hurst MD) Arthritis Asthma (12/27/12) Carotid artery stenosis Depression with anxiety Gastroesophageal reflux disease (12/27/12) HTN (hypertension) Hyperlipidemia Hypothyroidism Irritable bowel syndrome Kidney stone Migraine Obesity PAC (premature atrial contraction) Smokes 1 pack of cigarettes per day Vitamin B12 deficiency Vitamin D deficiency Surgical History H/O section H/O tubal ligation Hx of cholecystectomy Family History Unknown Coronary heart disease Diabetes Hypertension Mother Depression Diabetes Lung disease Myocardial infarction Cardiac disorder Brother Depression Alcohol abuse Sister Depression Anxiety Colon cancer Father Cardiac disorder Lung cancer Kidney stones Family/Other Prostate cancer Denies family history of Ovarian cancer Breast cancer Social History Smoking Status: Current every day smoker Tobacco Type: Cigarettes packs per day: 1; Cigarettes Per Day: 20; Second Hand Exposure: Yes; Do You Dip or Chew Tobacco: No; Tobacco Cessation Education Requested by Patient: No Hx Alcohol Use: No Hx Substance Use: No Preferred Language: Niuean Communication Ability: Effective Visual Impairment: No Limitations Hearing Ability: Normal Communications Consultant Required: No Beliefs That Will Affect Care: None marital status: Current Living Situation: Spouse current occupational status: unemployed Other Information That Helps Us Care for You: No Feels Safe at Home: Yes Safety Concerns: Feels Safe At This Time Childhood Exposure to Second-Hand Smoke: Yes Dental Care, Regularly: No Physical Activity Frequency: Daily Seatbelt Use: always Sunscreen Use: No Assistive Devices: Denture - Upper and Denture - Lower Review of Systems Review of Systems: All systems reviewed & are unremarkable except as noted in HPI & below No issues with abdominal pain, no constipation or diarrhea, no urinary symptoms No leg swelling She has frequent headaches which is common for her Physical Exam Constitutional: WD/WN, vitals as above Eyes: PERRL, conjunctivae normal, anicteric sclerae ENMT: external ear and nose normal, oropharynx normal Neck: trachea midline, no thyromegaly Respiratory: normal respiratory effort, lungs clear to auscultation Cardiovascular: RRR, no murmur, no edema Vessels: no JVD and no carotid bruit Extremities: no calf tenderness Chest (Breasts): Chest: normal inspection of chest Gastrointestinal (Abdomen): normal bowel sounds, soft, nontender, no hepatosplenomegaly Musculoskeletal: Extremities: extremities normal to inspection; no cyanosis and no clubbing Skin: no rashes, warm and dry Neurologic: moves all extremities and awake; no focal motor deficits Psychiatric: A+Ox3, euthymic affect Lymphatic: no lymphedema Results & Data Results & Data ([facility]) Vital Signs (Past 12 Hours) Vital Signs Temp Pulse Resp BP Pulse Ox 01/02/21 18:31 62 14 138/62 95 01/02/21 18:00 62 17 111/47 L 96 01/02/21 17:30 63 18 107/64 96 01/02/21 17:00 61 17 123/62 94 01/02/21 16:30 61 21 113/57 L 96 01/02/21 16:23 98 01/02/21 16:15 64 15 141/83 H 96 01/02/21 15:11 36.3 C L 73 20 150/74 H 97 Laboratory Results 01/02/21 01/02/21 01/02/21 Range/Units 22:07 19:22 19:22 WBC (4.8-10.8) K/uL RBC (4.2-5.4) M/uL Hgb (12.0-16.0) g/dL Hct (37-47) % MCV (80-100) fL MCH (25-34) pg MCHC (32-36) g/dL RDW Std Deviation (36.4-46.3) fL RDW Coeff of Audi (11.5-14.5) % Plt Count (130-400) K/uL MPV (7.4-10.4) fL Immature Gran % (Auto) % Neut % (Auto) % Lymph % (Auto) % Dent % (Auto) % Eos % (Auto) % Baso % (Auto) % Neut # (Auto) (1.4-6.5) K/uL Lymph # (Auto) (1.2-3.4) K/uL Dent # (Auto) (0.11-0.59) K/uL Eos # (Auto) (0-0.5) K/uL Baso # (Auto) (0-0.2) K/uL Immature Gran # (Auto) (0.00-0.02) K/uL Sodium (136-145) mmol/L Potassium (3.5-5.1) mmol/L Chloride (98-107) mmol/L Carbon Dioxide (21-32) mmol/L Anion Gap (3-11) BUN (7-18) mg/dl Creatinine (0.6-1.2) mg/dl Est Cr Clr Drug Dosing ml/min Est GFR ( Amer) Est GFR (Non-Af Amer) BUN/Creatinine Ratio (10-20) Glucose (70-99) mg/dl Calcium (8.5-10.1) mg/dl Magnesium (1.8-2.4) mg/dl Total Bilirubin (0.2-1) mg/dl AST (15-37) U/L ALT (12-78) U/L Alkaline Phosphatase (45-117) U/L Troponin I < 0.015 (0-0.045) ng/ml Total Protein (6.4-8.2) gm/dl Albumin (3.4-5.0) gm/dl Globulin (2.5-4.0) gm/dl Albumin/Globulin Ratio (0.9-2) Lipase (73-393) U/L COVID-19 [facility] C Ab Screen (Neg) SARS-CoV-2, RNA, NAAT NEGATIVE (NEGATIVE) 01/02/21 01/02/21 01/02/21 Range/Units 17:08 17:07 16:20 WBC (4.8-10.8) K/uL RBC (4.2-5.4) M/uL Hgb (12.0-16.0) g/dL Hct (37-47) % MCV (80-100) fL MCH (25-34) pg MCHC (32-36) g/dL RDW Std Deviation (36.4-46.3) fL RDW Coeff of Audi (11.5-14.5) % Plt Count (130-400) K/uL MPV (7.4-10.4) fL Immature Gran % (Auto) % Neut % (Auto) % Lymph % (Auto) % Dent % (Auto) % Eos % (Auto) % Baso % (Auto) % Neut # (Auto) (1.4-6.5) K/uL Lymph # (Auto) (1.2-3.4) K/uL Dent # (Auto) (0.11-0.59) K/uL Eos # (Auto) (0-0.5) K/uL Baso # (Auto) (0-0.2) K/uL Immature Gran # (Auto) (0.00-0.02) K/uL Sodium 136 (136-145) mmol/L Potassium 3.8 (3.5-5.1) mmol/L Chloride 109 H (98-107) mmol/L Carbon Dioxide 23 (21-32) mmol/L Anion Gap 4.0 (3-11) BUN 9 (7-18) mg/dl Creatinine 0.82 (0.6-1.2) mg/dl Est Cr Clr Drug Dosing 75.0 ml/min Est GFR ( Amer) 91.4 Est GFR (Non-Af Amer) 78.9 BUN/Creatinine Ratio 11.1 (10-20) Glucose 89 (70-99) mg/dl Calcium 9.6 (8.5-10.1) mg/dl Magnesium 2.3 (1.8-2.4) mg/dl Total Bilirubin 0.3 (0.2-1) mg/dl AST 18 (15-37) U/L ALT 24 (12-78) U/L Alkaline Phosphatase 100 (45-117) U/L Troponin I < 0.015 (0-0.045) ng/ml Total Protein 7.7 (6.4-8.2) gm/dl Albumin 3.8 (3.4-5.0) gm/dl Globulin 3.9 (2.5-4.0) gm/dl Albumin/Globulin Ratio 1.0 (0.9-2) Lipase 112 (73-393) U/L COVID-19 Eval Order Hepatitis C Ab Screen Neg (Neg) SARS-CoV-2, RNA, NAAT (NEGATIVE) 01/02/21 Range/Units 16:20 WBC 10.28 (4.8-10.8) K/uL RBC 4.56 (4.2-5.4) M/uL Hgb 13.4 (12.0-16.0) g/dL Hct 40.0 (37-47) % MCV 87.7 (80-100) fL MCH 29.4 (25-34) pg MCHC 33.5 (32-36) g/dL RDW Std Deviation 50.3 H (36.4-46.3) fL RDW Coeff of Audi 15.6 H (11.5-14.5) % Plt Count 215 (130-400) K/uL MPV 9.7 (7.4-10.4) fL Immature Gran % (Auto) 0.2 % Neut % (Auto) 67.7 % Lymph % (Auto) 22.8 % Dent % (Auto) 7.0 % Eos % (Auto) 1.8 % Baso % (Auto) 0.5 % Neut # (Auto) 6.96 H (1.4-6.5) K/uL Lymph # (Auto) 2.34 (1.2-3.4) K/uL Dent # (Auto) 0.72 H (0.11-0.59) K/uL Eos # (Auto) 0.19 (0-0.5) K/uL Baso # (Auto) 0.05 (0-0.2) K/uL Immature Gran # (Auto) 0.02 (0.00-0.02) K/uL Sodium (136-145) mmol/L Potassium (3.5-5.1) mmol/L Chloride (98-107) mmol/L Carbon Dioxide (21-32) mmol/L Anion Gap (3-11) BUN (7-18) mg/dl Creatinine (0.6-1.2) mg/dl Est Cr Clr Drug Dosing ml/min Est GFR ( Amer) Est GFR (Non-Af Amer) BUN/Creatinine Ratio (10-20) Glucose (70-99) mg/dl Calcium (8.5-10.1) mg/dl Magnesium (1.8-2.4) mg/dl Total Bilirubin (0.2-1) mg/dl AST (15-37) U/L ALT (12-78) U/L Alkaline Phosphatase (45-117) U/L Troponin I (0-0.045) ng/ml Total Protein (6.4-8.2) gm/dl Albumin (3.4-5.0) gm/dl Globulin (2.5-4.0) gm/dl Albumin/Globulin Ratio (0.9-2) Lipase (73-393) U/L COVID-19 Eval Order Hepatitis C Ab Screen (Neg) SARS-CoV-2, RNA, NAAT (NEGATIVE) Diagnostic Findings Chest x-ray normal ECG Additional Comments: As per HPI Code Status & VTE Plan Code Status Full code VTE Prophylaxis Plan VTE Prophylaxis will be ordered: Yes PG Care Time/CCT Total # of Minutes Spent Total Time Spent with Patient: Total time spent is greater than 50% in coordination of care (as documented) at patient's floor/unit and/or counseling patient: Coding Level of Care Code 12240 OBS Care - Level 3 Diagnoses Exertional chest pain R07.9 PAC (premature atrial contraction) I49.1 HTN (hypertension) I10 Depression with anxiety F41.8 Gastroesophageal reflux disease K21.9 Hyperlipidemia E78.5 Hypothyroidism E03.9 Irritable bowel syndrome K58.9 Migraine, unspecified, not intractable, without status migrainosus G43.909 Obesity E66.9 Smokes 1 pack of cigarettes per day F17.210 Vitamin B12 deficiency E53.8 Vitamin D deficiency E55.9 Asthma J45.909 DVT prophylaxis Z29.9
[2021-01-02] MEDS ORDERED: ALBUTEROL HFA 8 GM INHALER INH PRN (21:04)
[2021-01-02] MEDS ORDERED: BACLOFEN 10 MG TAB PO PRN (21:04)
[2021-01-02] MEDS ORDERED: POLYETHYLENE (MIRALAX) 17 GM PACK PO PRN (21:04)
[2021-01-02] MEDS ORDERED: MoRPHine SULFATE 2 MG/ML CARP IV PRN (21:04)
[2021-01-02] MEDS ORDERED: ONDANSETRON INJ 2 MG/ML 2 ML VIAL IV PRN (21:04)
[2021-01-02] MEDS ORDERED: LORazepam 0.5 MG TAB PO PRN (21:04)
[2021-01-02] MEDS ORDERED: NITROGLYCERIN SL 0.4 MG/TAB TAB SL PRN (21:04)
[2021-01-02] MEDS ORDERED: ACETAMINOPHEN 325 MG TAB PO PRN (21:04)
[2021-01-02] MEDS ORDERED: SIMVASTATIN 20 MG TAB PO SCH (22:00)
[2021-01-03] MEDS: METOPROLOL TARTRATE 25 MG TAB PO SCH ×3 (00:23→19:25)
[2021-01-03] MEDS: ENOXAPARIN 80 MG/0.8 ML SYR SQ SCH ×3 (00:24→21:49)
[2021-01-03] MEDS: LEVOTHYROXINE SODIUM 100 MCG TABLET PO SCH (05:58)
[2021-01-03 06:42] LABS: BUN Creatinine Ratio 14.4 (10-20); Calcium 8.7 mg/dl (8.5-10.1); Creatinine Clr Calc Pharmacy 76.7 ml/min; Est GFR (African American) 94.2; Est GFR (Non-African American) 81.3; Potassium 3.9 mmol/L (3.5-5.1)
[2021-01-03] MEDS: ASPIRIN 81 MG ECTAB PO SCH (08:17)
[2021-01-03] MEDS: ASCORBIC ACID 500 MG TAB PO SCH (08:17)
[2021-01-03] MEDS: MULTIVITAMIN TAB PO SCH (08:18)
[2021-01-03] MEDS: SERTRALINE HCL 50 MG TABLET PO SCH (08:18)
[2021-01-03] MEDS: MONTELUKAST SODIUM 10 MG TABLET PO SCH (08:18)
[2021-01-03] MEDS: PANTOprazole 40 MG TAB PO SCH (08:18)
[2021-01-03] MEDS: VITAMIN B COMPLEX TAB PO SCH (08:18)
[2021-01-03] MEDS ORDERED: lisinopril 10 MG TAB PO SCH (09:00)
--- NOTE | 2021-01-03 11:02 | XCELERA ---
[id number]
--- NOTE | 2021-01-03 11:25 | Cardiology Consultation ---
Date of Consultation January 03, 2021 Assessment & Plan (1) Exertional chest pain: -predictable, reproducible exertional chest discomfort concerning for angina pectoris. -agree with therapeutic Lovenox. -agree with low-dose metoprolol tartrate, aspirin, and simvastatin. -feel that she will have an early positive stress test. -would proceed with cardiac catheterization on Tuesday morning. -she should remain hospitalized until her cardiac catheterization can be p erformed. (2) HTN (hypertension): -adequate control on her current regimen. (3) Hyperlipidemia: -continue simvastatin for now. -should she demonstrate coronary disease would recommend a change to high- intensity statin. (4) Palpitations: -symptomatic PACs noted on the monitor while in the emergency room. History of Present Illness Attending Physician: Hernandez Xiong History of Present Illness Mrs. Ward is a 60-year-old female admitted yesterday with a chest pain syndrome. This consultation was ordered to assist in her cardiac management. Of note, patient has never seen a neck band setter previously. The patient was in her usual state of health until approximately 4 days prior to presentation. She began to note exertional substernal chest pressure with minimal physical activities such as climbing 1 flight of stairs. She had associated shortness of breath and occasional diaphoresis. She also noted concurrent lightheadedness. The patient explained that her symptoms would resolve after several minutes of rest. This became a very reproducible symptom. She never experienced these symptoms while at rest. The patient was also noticing frequent, intermittent palpitations over this same timeframe (radio aerial installer in the emergency room documented symptomatic PACs). The patient presented to the emergency room yesterday for an evaluation regarding her symptoms as described. Fortunately, her initial troponin level was undetectable and she had no acute EKG changes. However, her history is quite concerning and hospitalization was recommended. The patient has never known of a cardiac event. She has never had a stress test or cardiac catheterization. Currently, patient is resting comfortably in bed and without complaints. Past medical and surgical history 1. Hypertension 2. Hypercholesterolemia 3. Symptomatic PACs 4. Asthma 5. Hypothyroidism 6. GERD 7. Irritable bowel syndrome 8. Nephrolithiasis 9. Anxiety/depression 10. Migraine headaches 11. Vitamin B12 deficiency 12. Vitamin-D deficiency 13. 14. Tubal ligation 15. Cholecystectomy Social history and lives with her Currently on disability due to migraine headaches Smokes 1 pack of cigarettes daily. Thirty pack year history. No alcohol Family history Mother had an [place] followed by bypass surgery in her 50s. Father in his 60s from COPD Review systems A 10 point review systems was negative except for that described above. Allergies Allergy/AdvReac Type Severity Reaction Status Date / Time fremanezumab-vfrm Allergy Intermediate hives, Verified 07/29/20 10:28 [From Ajovy Autoinjector] vomiting balsam natalee Allergy Mild ITCHY Verified 07/29/20 10:28 boric acid Allergy Mild ITCHY Verified 07/29/20 10:28 formaldehyde Allergy Mild ITCHY Verified 07/29/20 10:28 mercaptopurine Allergy Mild ITCHY Verified 07/29/20 10:28 metronidazole Allergy Mild ITCHY Verified 07/29/20 10:28 talc Allergy Mild ITCHY Verified 07/29/20 10:28 zinc Allergy Mild ITCHY Verified 07/29/20 10:28 animal dander Allergy Unknown Verified 01/02/21 17:57 atorvastatin [From Lipitor] Allergy Unknown Verified 01/02/21 17:57 azithromycin Allergy Unknown Verified 01/02/21 17:57 carbamazepine [From Tegretol] Allergy Unresponsiv Verified 01/02/21 17:57 e divalproex sodium Allergy Unknown Verified 01/02/21 17:57 [From Depakote] duloxetine [From Cymbalta] Allergy Unknown Verified 01/02/21 17:57 house dust Allergy Unknown Verified 01/02/21 17:57 imipramine Allergy Unknown Verified 01/02/21 17:57 latex Allergy Unknown Verified 01/02/21 17:57 mold Allergy Unknown Verified 01/02/21 17:57 nickel Allergy Unknown Verified 01/02/21 17:57 nortriptyline Allergy Unknown Verified 01/02/21 17:57 omeprazole Allergy Unknown Verified 01/02/21 17:57 ragweed pollen Allergy Unknown Verified 01/02/21 17:57 sulfamethoxazole Allergy Unknown Verified 01/02/21 17:57 [From Bactrim] trimethoprim [From Bactrim] Allergy Unknown Verified 01/02/21 17:57 venlafaxine Allergy Unknown Verified 01/02/21 17:57 DIBROMODICYAMBUTANE Allergy Mild ITCHY Uncoded 07/29/20 10:28 PHENYLENEDIAMINE Allergy Mild blistering Uncoded 07/29/20 10:28 Potassium Dichromate Allergy Mild ITCHY Uncoded 07/29/20 10:28 Qudexy XR CS24 Allergy Unknown Unknown Uncoded 01/02/21 17:57 Home Medications Medication Instructions Recorded Confirmed Type ascorbic acid (vitamin C) 500 mg 500 mg PO DAILY cap 06/02/19 01/02/21 History capsule aspirin 81 mg tablet,delayed 81 mg PO DAILY tab 06/02/19 01/02/21 History release lorazepam 0.5 mg tablet 0.5 mg PO TID PRN tab 06/02/19 01/02/21 History uvhemzpnrzkg-Au-taai-minerals 1 tab PO DAILY tab 06/02/19 01/02/21 History triamcinolone acetonide 0.1 % 1 appln TOPICAL BID PRN #1 gm 06/02/19 01/02/21 History topical cream vitamin B complex 1 tab PO DAILY 06/02/19 01/02/21 History clobetasol 0.05 % topical cream 1 appln TOPICAL BID PRN gm 06/19/19 01/02/21 History omeprazole 40 mg capsule,delayed 40 mg PO DAILY 10/04/19 01/02/21 History release levothyroxine 100 mcg tablet 100 mcg PO DAILY #30 tab 05/01/20 01/02/21 Rx simvastatin 20 mg tablet 20 mg PO QPM #30 tab 06/06/20 01/02/21 Rx baclofen 10 mg tablet 10 mg PO BID PRN #60 tab 07/16/20 01/02/21 Rx meclizine 25 mg tablet 25 mg PO TID PRN #90 tab 07/16/20 01/02/21 Rx naproxen 500 mg tablet 500 mg PO BID PRN #30 tab 07/16/20 01/02/21 Rx ondansetron HCl 4 mg tablet 4 mg PO BID PRN #30 tab 07/16/20 01/02/21 Rx sumatriptan succinate 6 mg/0.5 mL 6 mg SUBCUT .COMPLEX #5 ml 07/16/20 01/02/21 Rx subcutaneous pen injector albuterol sulfate 90 mcg/actuation 2 puff INHALATION .COMPLEX PRN 07/29/20 01/02/21 Rx aerosol inhaler #8.5 g sertraline 100 mg tablet 150 mg PO DAILY #135 tab 10/23/20 01/02/21 Rx lisinopril 10 mg tablet 10 mg PO DAILY #90 tab 12/03/20 01/02/21 Rx montelukast 10 mg tablet 10 mg PO DAILY #30 tab 12/03/20 01/02/21 Rx vitamin E 0 unit PO DAILY 01/02/21 01/02/21 History Patient History Medical History (Updated 01/03/21 @ 11:21 by Yamil Devine MD) Arthritis Asthma (12/27/12) Carotid artery stenosis Depression with anxiety Gastroesophageal reflux disease (12/27/12) HTN (hypertension) Hyperlipidemia Hypothyroidism Irritable bowel syndrome Kidney stone Migraine Obesity PAC (premature atrial contraction) Smokes 1 pack of cigarettes per day Vitamin B12 deficiency Vitamin D deficiency Surgical History H/O section H/O tubal ligation Hx of cholecystectomy Family History Unknown Coronary heart disease Diabetes Hypertension Mother Depression Diabetes Lung disease Myocardial infarction Cardiac disorder Brother Depression Alcohol abuse Sister Depression Anxiety Colon cancer Father Cardiac disorder Lung cancer Kidney stones Family/Other Prostate cancer Denies family history of Ovarian cancer Breast cancer Social History Smoking Status: Current every day smoker Tobacco Type: Cigarettes packs per day: 1; Cigarettes Per Day: 20; Second Hand Exposure: Yes; Do You Dip or Chew Tobacco: No; Tobacco Cessation Education Requested by Patient: No Hx Alcohol Use: No Hx Substance Use: No Preferred Language: Estonian Communication Ability: Effective Visual Impairment: No Limitations Hearing Ability: Normal Paragliding Instructor Required: No Beliefs That Will Affect Care: None marital status: Current Living Situation: Spouse current occupational status: unemployed Other Information That Helps Us Care for You: No Feels Safe at Home: Yes Safety Concerns: Feels Safe At This Time Childhood Exposure to Second-Hand Smoke: Yes Dental Care, Regularly: No Physical Activity Frequency: Daily Seatbelt Use: always Sunscreen Use: No Assistive Devices: Denture - Upper and Denture - Lower Physical Exam Physical Exam: In general this is a well-developed well-nourished white female in no acute distress. HEENT exam is negative. Neck is supple with full carotid upstrokes. There are no carotid bruits. Jugular venous pressure is flat at 90. There is no thyromegaly. Cardiovascular exam reveals a regular rhythm with a normal S1 and S2. No S3, S4, or murmurs are noted. Lungs are clear without rales, rhonchi, or wheezes. Abdomen is soft and nontender without bruits. Extremities reveal intact radial artery and posterior tibial pulses bilaterally. There is no peripheral edema. Results & Data ([facility]) Vital Signs (Past 12 Hours) Vital Signs Temp Pulse Pulse Resp BP Pulse Ox 01/03/21 08:29 57 L 01/03/21 07:41 36.6 C 42 L 17 106/55 L 95 01/03/21 04:26 36.7 C 56 L 16 101/63 93 01/03/21 00:00 64 Laboratory Results CBC notes hemoglobin 13.4, hematocrit 40.0, white count 10.2, and platelet count of [id number]. Electrolytes note a sodium of 144, potassium 3.9, chloride 113, bicarb 26, BUN 12, creatinine 0.8, and glucose of 94. Three troponin I levels are undetectable at less than 0.015. LDL cholesterol is 118 with an HDL of 30. Diagnostic Findings EKG notes sinus rhythm and frequent PACs. Echocardiogram noted normal left ventricular systolic function without wall motion abnormalities. Left trigger ejection fraction was 60-65%. There is mild tricuspid regurgitation. Chest x- ray shows no acute disease. PG Care Time/CCT Total # of Minutes Spent Total Time Spent with Patient: Total time spent is greater than 50% in coordination of care (as documented) at patient's floor/unit and/or counseling patient: Coding Level of Care Code 46008 Inpt Consult Level 5 Diagnoses Exertional chest pain R07.9 HTN (hypertension) I10 Hyperlipidemia E78.5 Palpitations R00.2
--- NOTE | 2021-01-03 12:07 | Electrocardiogram Report ---
Test Reason : Blood Pressure : / mmHG Vent. Rate : 068 BPM Atrial Rate : 068 BPM P-R Int : 122 ms QRS Dur : 086 ms QT Int : 432 ms P-R-T Axes : 060 027 013 degrees QTc Int : 459 ms Sinus rhythm with Premature supraventricular complexes Otherwise normal ECG When compared with ECG of 06-AUG-2014 10:12, Premature supraventricular complexes are now Present Confirmed by Yamil Devine ([id number]) on 01/03/2021 12:06:44 PM Referred By: REFERRED SELF Confirmed By:Yamil Devine
--- NOTE | 2021-01-03 12:14 | Electrocardiogram Report ---
Test Reason : Blood Pressure : / mmHG Vent. Rate : 059 BPM Atrial Rate : 059 BPM P-R Int : 130 ms QRS Dur : 084 ms QT Int : 474 ms P-R-T Axes : 064 043 040 degrees QTc Int : 469 ms Sinus bradycardia with Premature supraventricular complexes Otherwise normal ECG When compared with ECG of 02-JAN-2021 15:19, (unconfirmed) No significant change was found Confirmed by Yamil Devine ([id number]) on 01/03/2021 12:14:29 PM Referred By: REFERRED SELF Confirmed By:Yamil Devine
[2021-01-03] MEDS: NICOTINE 21 MG/24 HR TDSY TD SCH (14:04)
--- NOTE | 2021-01-03 19:00 | Hospitalist Progress Note ---
Date of Service January 03, 2021 Assessment & Plan (1) Exertional chest pain: Very concerning for ischemic chest pain. Fortunately no evidence of ACS/NSTEMI. Cpax-icg-iksr -- continue lovenox 80mg BID. Cont simvastatin - increase to 40mg daily. Asa. Metoprolol. Heart cath planned for Tuesday. (2) PAC (premature atrial contraction): Echo wnl. Cont metoprolol. (3) HTN (hypertension): Continue low-dose metoprolol (4) Depression with anxiety: Stable Continue home lorazepam as needed and sertraline 150 mg p.o. once daily (5) Gastroesophageal reflux disease: Stable Continue home PPI (6) Hyperlipidemia: increase simvastatin to 40mg daily Lipids extensively reviewed with patient and her daughter will give handouts on Mediterranean diet (7) Hypothyroidism: TSH normal in 09/2020 Continue home levothyroxine (8) Irritable bowel syndrome: No acute issues (9) Migraine, unspecified, not intractable, without status migrainosus: No acute issues Imitrex as needed although caution with concern of CAD (10) Obesity: BMI 31.2 (11) Smokes 1 pack of cigarettes per day: Nicoderm patch 21mg/24 hours (12) Vitamin B12 deficiency: Continue home B12 supplement (13) Vitamin D deficiency: Noted (14) Asthma: No acute issues Continue albuterol as needed (15) DVT prophylaxis: Lovenox 1mg/kg BID daughter updated at bedside Admission and Anticipated Discharge Date Admission Date: January 02, 2021 Subjective patient w/o complaints no chest pain, orthopnea, dyspnea, or palpitations since admission no GI complaints mother had CAD in her 40s or 50s daughter at bedside tele overnight - PACs Review of Systems Constitutional: no fever and no chills Respiratory: no cough, no dyspnea and no dyspnea on exertion Cardiovascular: as per Subjective / HPI; no chest pain, no chest pain at rest, no dyspnea at rest, no dyspnea on exertion, no orthopnea, no paroxysmal nocturnal dyspnea and no edema Gastrointestinal: no abdominal pain, no nausea and no vomiting Physical Exam Constitutional: no acute distress and no altered mental status ENMT: external ear and nose normal, oropharynx normal Respiratory: normal respiratory effort, lungs clear to auscultation Cardiovascular: Rate/Rhythm: regular rate and regular rhythm Heart Sounds: normal S1 and normal S2; no murmur Vessels: posterior tibial pulses present and dorsalis pedis pulses present; no JVD Extremities: no edema Gastrointestinal (Abdomen): normal bowel sounds, soft, nontender, no hepatosplenomegaly Skin: no rashes, warm and dry Psychiatric: A+Ox3, euthymic affect Results & Data Results & Data ([facility]) Vital Signs (Past 12 Hours) Vital Signs Temp Pulse Pulse Resp BP Pulse Ox 01/03/21 16:00 62 01/03/21 15:47 36.5 C 47 L 18 127/67 95 01/03/21 11:42 36.4 C L 52 L 17 114/59 L 95 01/03/21 08:29 57 L 01/03/21 07:41 36.6 C 42 L 17 106/55 L 95 Laboratory Results Laboratory Results - last 24 hr 01/02/21 01/02/21 01/02/21 17:08 19:22 19:22 Sodium Potassium Chloride Carbon Dioxide Anion Gap BUN Creatinine Est Cr Clr Drug Dosing Est GFR ( Amer) Est GFR (Non-Af Amer) BUN/Creatinine Ratio Glucose Calcium Troponin I Triglycerides Cholesterol LDL Cholesterol, Calc VLDL Cholesterol, Calc HDL Cholesterol Cholesterol/HDL Ratio [facility] C Ab Screen Neg SARS-CoV-2, RNA, NAAT NEGATIVE 01/02/21 01/03/21 01/03/21 22:07 05:45 05:45 Sodium 144 D Potassium 3.9 Chloride 113 H Carbon Dioxide 26 Anion Gap 5.0 BUN 12 Creatinine 0.80 Est Cr Clr Drug Dosing 76.7 Est GFR ( Amer) 94.2 Est GFR (Non-Af Amer) 81.3 BUN/Creatinine Ratio 14.4 Glucose 94 Calcium 8.7 Troponin I < 0.015 < 0.015 Triglycerides 398 H Cholesterol 228 H LDL Cholesterol, Calc 118 VLDL Cholesterol, Calc 80 HDL Cholesterol 30 Cholesterol/HDL Ratio 8 COVID-19 Eval Order Hepatitis C Ab Screen SARS-CoV-2, RNA, NAAT echo - normal EF; no regional wall motion abnormalities; normal valve function PG Care Time/CCT Total # of Minutes Spent Total Time Spent with Patient: Total time spent is greater than 50% in coordination of care (as documented) at patient's floor/unit and/or counseling patient: Coding Level of Care Code 36596 Subseq Obs Care Lvl 2 Diagnoses Exertional chest pain R07.9 PAC (premature atrial contraction) I49.1 HTN (hypertension) I10 Depression with anxiety F41.8 Gastroesophageal reflux disease K21.9 Hyperlipidemia E78.5 Hypothyroidism E03.9 Irritable bowel syndrome K58.9 Migraine, unspecified, not intractable, without status migrainosus G43.909 Obesity E66.9 Smokes 1 pack of cigarettes per day F17.210 Vitamin B12 deficiency E53.8 Vitamin D deficiency E55.9 Asthma J45.909 DVT prophylaxis Z29.9
[2021-01-03] MEDS: SIMVASTATIN 40 MG TAB PO SCH (20:33)
[2021-01-04] MEDS: LEVOTHYROXINE SODIUM 100 MCG TABLET PO SCH (05:23)
[2021-01-04] MEDS: NICOTINE 21 MG/24 HR TDSY TD SCH (09:23)
[2021-01-04] MEDS: METOPROLOL TARTRATE 25 MG TAB PO SCH ×2 (09:24→19:48)
[2021-01-04] MEDS: PANTOprazole 40 MG TAB PO SCH ×2 (09:24→19:48)
[2021-01-04] MEDS: ASPIRIN 81 MG ECTAB PO SCH (09:24)
[2021-01-04] MEDS: SERTRALINE HCL 50 MG TABLET PO SCH (09:24)
[2021-01-04] MEDS: MONTELUKAST SODIUM 10 MG TABLET PO SCH (09:24)
[2021-01-04] MEDS: VITAMIN B COMPLEX TAB PO SCH (09:25)
[2021-01-04] MEDS: MULTIVITAMIN TAB PO SCH (09:25)
[2021-01-04] MEDS: ASCORBIC ACID 500 MG TAB PO SCH (09:25)
--- NOTE | 2021-01-04 10:45 | Cardiology Progress Note ---
Date of Service January 04, 2021 Assessment & Plan (1) Exertional chest pain: -predictable, reproducible exertional chest discomfort concerning for angina pectoris. -agree with therapeutic Lovenox. -agree with low-dose metoprolol tartrate, aspirin, and simvastatin. -would proceed with cardiac catheterization tomorrow morning. -she should remain hospitalized until her cardiac catheterization can be performed. (2) HTN (hypertension): -adequate control. (3) Hyperlipidemia: -continue simvastatin for now. -should she demonstrate coronary disease would recommend a change to high- intensity statin. (4) Palpitations: -symptomatic PACs. Admission and Anticipated Discharge Date Admission Date: January 02, 2021 Subjective The patient is resting comfortably in bed without complaints of chest pain or dyspnea. She agrees to cardiac catheterization in a.m.. Physical Exam Physical Exam: In general this is a well-developed well-nourished white female in no acute distress. HEENT exam is negative. Neck is supple with full carotid upstrokes. There are no carotid bruits. Jugular venous pressure is flat at 90. There is no thyromegaly. Cardiovascular exam reveals a regular rhythm with a normal S1 and S2. No S3, S4, or murmurs are noted. Lungs are clear without rales, rhonchi, or wheezes. Abdomen is soft and nontender without bruits. Extremities reveal intact radial artery and posterior tibial pulses bilaterally. There is no peripheral edema. Results & Data ([facility]) Vital Signs (Past 12 Hours) Vital Signs Temp Pulse Pulse Resp BP Pulse Ox 01/04/21 07:06 37.1 C 54 L 20 118/54 L 94 01/04/21 04:01 36.9 C 56 L 19 109/72 93 01/03/21 23:48 36.7 C 50 L 17 107/68 94 01/03/21 23:08 63 Diagnostic Findings media monitor notes frequent PACs. PG Care Time/CCT Total # of Minutes Spent Total Time Spent with Patient: Total time spent is greater than 50% in coordination of care (as documented) at patient's floor/unit and/or counseling patient: Coding Level of Care Code 11194 Subseq Hosp Care Lvl 3 Diagnoses Exertional chest pain R07.9 HTN (hypertension) I10 Hyperlipidemia E78.5 Palpitations R00.2
[2021-01-04] MEDS: ENOXAPARIN 80 MG/0.8 ML SYR SQ SCH ×2 (11:36→23:27)
--- NOTE | 2021-01-04 12:45 | Electrocardiogram Report ---
Test Reason : Blood Pressure : / mmHG Vent. Rate : 058 BPM Atrial Rate : 058 BPM P-R Int : 128 ms QRS Dur : 084 ms QT Int : 478 ms P-R-T Axes : 056 041 036 degrees QTc Int : 469 ms Sinus bradycardia with Premature supraventricular complexes Otherwise normal ECG When compared with ECG of 03-JAN-2021 06:56, No significant change was found Confirmed by Yamil Devine ([id number]) on 01/04/2021 12:45:11 PM Referred By: REFERRED SELF Confirmed By:Yamil Devine
[2021-01-04] MEDS: SIMVASTATIN 40 MG TAB PO SCH (19:48)
--- NOTE | 2021-01-04 19:54 | Hospitalist Progress Note ---
Date of Service January 04, 2021 Assessment & Plan (1) Exertional chest pain: Very concerning for ischemic chest pain. Fortunately no evidence of ACS/NSTEMI. Eyrx-qdn-vaok -- continue lovenox 80mg BID. Cont simvastatin - increased to 40mg daily given lipid profile results. May ultimately need dedicated med for HDL and trigs. Asa. Metoprolol. Heart cath planned for TUESDAY am. NPO after MN tonight. (2) PAC (premature atrial contraction): Echo wnl. Cont metoprolol. Reassurance given to her that these are benign. (3) HTN (hypertension): Continue low-dose metoprolol Controlled (4) Depression with anxiety: Stable Continue home lorazepam as needed and sertraline 150 mg p.o. once daily (5) Gastroesophageal reflux disease: Having some symptoms despite once daily PPI Increase PPI to twice daily dosing If CAD is found on cath tomorrow some of her "reflux" symptoms could be from such (6) Hyperlipidemia: increased simvastatin to 40mg daily Lipids extensively reviewed with patient and her daughter gave handouts on Mediterranean diet (7) Hypothyroidism: TSH normal in 09/2020 Continue home levothyroxine (8) Irritable bowel syndrome: No acute issues (9) Migraine, unspecified, not intractable, without status migrainosus: No acute issues Imitrex as needed although caution with concern of CAD (10) Obesity: BMI 31.2 (11) Smokes 1 pack of cigarettes per day: Nicoderm patch 21mg/24 hours patient motivated to quit wants to use nicoderm post-d/c (12) Vitamin B12 deficiency: Continue home B12 supplement (13) Vitamin D deficiency: Noted (14) Asthma: No acute issues Continue albuterol as needed I don't believe asthma is causing chest sx's (15) DVT prophylaxis: Lovenox 1mg/kg BID daughter updated at bedside yesterday await cath tomorrow Admission and Anticipated Discharge Date Admission Date: January 02, 2021 Subjective had episode of heartburn this am also with occasional chest tightness at rest but no chest symptoms with activity today no dyspnea at rest or with exertion tele - pacs, nsr gave handout on mediterranean diet today Review of Systems Respiratory: no cough and no pain on inspiration Cardiovascular: as per Subjective / HPI and + palpitations; no orthopnea and no edema Gastrointestinal: no abdominal pain, no nausea and no vomiting Physical Exam Constitutional: no acute distress and no altered mental status ENMT: external ear and nose normal, oropharynx normal Respiratory: normal respiratory effort, lungs clear to auscultation Cardiovascular: Rate/Rhythm: regular rate and regular rhythm (Extra beats heard) Heart Sounds: normal S1 and normal S2; no murmur Vessels: posterior tibial pulses present and dorsalis pedis pulses present; no JVD Extremities: no edema Chest (Breasts): Additional Comments: no tenderness to palpation over central chest Gastrointestinal (Abdomen): normal bowel sounds, soft, nontender, no hepatosplenomegaly Skin: no rashes, warm and dry Psychiatric: A+Ox3, euthymic affect Results & Data Results & Data ([facility]) Vital Signs (Past 12 Hours) Vital Signs Temp Pulse Resp BP Pulse Ox 01/04/21 19:05 37.2 C 63 17 137/78 95 01/04/21 15:20 36.6 C 54 L 18 119/62 95 01/04/21 11:58 37.0 C 56 L 18 129/69 96 PG Care Time/CCT Total # of Minutes Spent Total Time Spent with Patient: Total time spent is greater than 50% in coordination of care (as documented) at patient's floor/unit and/or counseling patient: Coding Level of Care Code 92916 Subseq Obs Care Lvl 2 Diagnoses Exertional chest pain R07.9 PAC (premature atrial contraction) I49.1 HTN (hypertension) I10 Depression with anxiety F41.8 Gastroesophageal reflux disease K21.9 Hyperlipidemia E78.5 Hypothyroidism E03.9 Irritable bowel syndrome K58.9 Migraine, unspecified, not intractable, without status migrainosus G43.909 Obesity E66.9 Smokes 1 pack of cigarettes per day F17.210 Vitamin B12 deficiency E53.8 Vitamin D deficiency E55.9 Asthma J45.909 DVT prophylaxis Z29.9
[2021-01-05] MEDS: LEVOTHYROXINE SODIUM 100 MCG TABLET PO SCH (05:11)
[2021-01-05 07:52] LABS: BUN Creatinine Ratio 15.9 (10-20); Creatinine Clr Calc Pharmacy 76.5 ml/min; Est GFR (African American) 94.2; Est GFR (Non-African American) 81.3; Potassium 3.9 mmol/L (3.5-5.1)
[2021-01-05] MEDS: METOPROLOL TARTRATE 25 MG TAB PO SCH ×2 (08:50→20:00)
[2021-01-05] MEDS: MULTIVITAMIN TAB PO SCH (08:51)
[2021-01-05] MEDS: PANTOprazole 40 MG TAB PO SCH ×2 (08:51→20:01)
[2021-01-05] MEDS: NICOTINE 21 MG/24 HR TDSY TD SCH (08:51)
[2021-01-05] MEDS: ASCORBIC ACID 500 MG TAB PO SCH (08:51)
[2021-01-05] MEDS: VITAMIN B COMPLEX TAB PO SCH (08:53)
[2021-01-05] MEDS: SERTRALINE HCL 50 MG TABLET PO SCH (08:53)
[2021-01-05] MEDS: MONTELUKAST SODIUM 10 MG TABLET PO SCH (08:53)
[2021-01-05] MEDS: ASPIRIN 81 MG ECTAB PO SCH (08:53)
--- NOTE | 2021-01-05 09:45 | Cardiology Progress Note ---
Date of Service January 05, 2021 Assessment & Plan (1) Exertional chest pain: -predictable, reproducible exertional chest discomfort concerning for angina pectoris. -agree with therapeutic Lovenox. -agree with low-dose metoprolol tartrate, aspirin, and simvastatin. -cardiac catheterization today with Dr. Jeffers. (2) HTN (hypertension): -adequate control. (3) Hyperlipidemia: -continue simvastatin for now. -should she demonstrate CAD would recommend a change to high-intensity statin. (4) Palpitations: -symptomatic PACs. Admission and Anticipated Discharge Date Admission Date: January 02, 2021 Subjective The patient is resting comfortably in bed without complaints of chest pain or dyspnea. She met with Dr. Jeffers to discuss her cardiac catheterization. Physical Exam Physical Exam: In general this is a well-developed well-nourished white female in no acute distress. HEENT exam is negative. Neck is supple with full carotid upstrokes. There are no carotid bruits. No JVD. There is no thyromegaly. Cardiovascular exam reveals a regular rhythm with a normal S1 and S2. No S3, S4, or murmurs are noted. Lungs are clear without rales, rhonchi, or wheezes. Abdomen is soft and nontender without bruits. Extremities reveal intact radial artery and posterior tibial pulses bilaterally. There is no peripheral edema. Results & Data ([facility]) Vital Signs (Past 12 Hours) Vital Signs Temp Pulse Pulse Resp BP Pulse Ox 01/05/21 07:17 36.7 C 53 L 18 102/60 94 01/05/21 02:35 36.3 C L 58 L 19 103/66 94 01/05/21 00:01 70 01/04/21 23:55 36.9 C 57 L 20 122/61 95 PG Care Time/CCT Total # of Minutes Spent Total Time Spent with Patient: Total time spent is greater than 50% in coordina tion of care (as documented) at patient's floor/unit and/or counseling patient: Coding Level of Care Code 58119 Subseq Hosp Care Lvl 3 Diagnoses Exertional chest pain R07.9 HTN (hypertension) I10 Hyperlipidemia E78.5 Palpitations R00.2
--- NOTE | 2021-01-05 10:03 | Pre Anesthesia Assessment ---
Date of Service January 05, 2021 Pre Sedation Assessment Vital Signs Temp Pulse Pulse Resp BP Pulse Ox 01/05/21 07:17 36.7 C 53 L 18 102/60 94 01/05/21 02:35 36.3 C L 58 L 19 103/66 94 01/05/21 00:01 70 01/04/21 23:55 36.9 C 57 L 20 122/61 95 01/04/21 19:05 37.2 C 63 17 137/78 95 01/04/21 15:20 36.6 C 54 L 18 119/62 95 01/04/21 11:58 37.0 C 56 L 18 129/69 96 Cardiovascular + regular rhythm and + bradycardic Respiratory normal respiratory effort, lungs clear to auscultation Pre-Sedation Airway Assessment Smoking Status: Current every day smoker Mallampati Class: IV ASA: ASA3 NPO Status Date of Last Intake of Fluids: 01/04/21 Time of Last Intake of Fluids: 23:00 Date of Last Intake of Solid Food: 01/04/21 Time of Last Intake of Solid Foods: 23:00 Procedure Planning Contraindications for Sedation: none Current Medications Reviewed: Yes Notes The planned sedation has been discussed with the patient. Informed Consent was obtained. I have identified the patient, determined the appropriateness of sedation and have assessed the patient immediately prior to the procedure. All medicine(s) and interventions are by my order.
[2021-01-05] MEDS: ENOXAPARIN 80 MG/0.8 ML SYR SQ SCH ×2 (12:34→21:28)
--- NOTE | 2021-01-05 12:56 | Hospitalist Progress Note ---
Date of Service January 05, 2021 Assessment & Plan (1) Exertional chest pain: Typical for angina pectoris. Troponin series negative. Cardiology consultation appreciated. Statin dosage uptitrated. Continue aspirin and metoprolol. Left heart catheterization today. (2) PAC (premature atrial contraction): Echo wnl. No regional wall motion abnormalities Cont metoprolol. (3) HTN (hypertension): Continue metoprolol Controlled (4) Depression with anxiety: Stable Continue home lorazepam as needed and sertraline 150 mg p.o. once daily (5) Gastroesophageal reflux disease: PPI therapy (6) Hyperlipidemia: increased simvastatin to 40mg daily (7) Hypothyroidism: TSH normal in 09/2020 Continue home levothyroxine (8) Irritable bowel syndrome: No acute issues (9) Migraine, unspecified, not intractable, without status migrainosus: No acute issues Imitrex as needed although caution with concern of CAD (10) Obesity: BMI 31.2 (11) Smokes 1 pack of cigarettes per day: Nicoderm patch 21mg/24 hours patient motivated to quit wants to use nicoderm post-d/c (12) Vitamin B12 deficiency: Continue home B12 supplement (13) Vitamin D deficiency: Noted (14) Asthma: No acute issues Continue albuterol as needed (15) DVT prophylaxis: Lovenox 1mg/kg BID Disposition: To be determined Admission and Anticipated Discharge Date Admission Date: January 05, 2021 Subjective Alert and currently asymptomatic. Cardiology consultation noted. Statin dosage uptitrated. Continue aspirin and metoprolol. Left heart catheterization later today. Troponin series negative. Review of Systems Review of Systems: All systems reviewed & are unremarkable except as noted in HPI & below Physical Exam Physical Exam: General-alert and oriented x3, no fevers, no chills HEENT-head atraumatic and normocephalic, TMs intact bilaterally, pupils equal and reactive to light, extraocular muscles intact Neck-no lymphadenopathy or thyromegaly, trachea midline Chest-clear to auscultation percussion. No rales wheezing or rhonchi Cardiac-regular rate and rhythm, normal S1 and S2, no murmurs Abdomen-normal bowel sounds, nontender, no hepatosplenomegaly Extremities-no cyanosis, clubbing, or edema Neuro-cranial nerves II through XII intact, motor and sensory function within normal limits, strength symmetrical 5/5, no focal deficits Psych-normal affect, normal mood Results & Data Results & Data ([facility]) Vital Signs (Past 12 Hours) Vital Signs Temp Pulse Resp BP Pulse Ox 01/05/21 11:10 36.9 C 56 L 19 119/74 96 01/05/21 07:17 36.7 C 53 L 18 102/60 94 01/05/21 02:35 36.3 C L 58 L 19 103/66 94 Laboratory Results 01/02/21 16:20 01/05/21 07:03 PG Care Time/CCT Total # of Minutes Spent Total Time Spent with Patient: Total time spent is greater than 50% in coordination of care (as documented) at patient's floor/unit and/or counseling patient: Coding Level of Care Code 14376 Subseq Hosp Care Lvl 3 Diagnoses Exertional chest pain R07.9 PAC (premature atrial contraction) I49.1 HTN (hypertension) I10 Depression with anxiety F41.8 Gastroesophageal reflux disease K21.9 Hyperlipidemia E78.5 Hypothyroidism E03.9 Irritable bowel syndrome K58.9 Migraine, unspecified, not intractable, without status migrainosus G43.909 Obesity E66.9 Smokes 1 pack of cigarettes per day F17.210 Vitamin B12 deficiency E53.8 Vitamin D deficiency E55.9 Asthma J45.909 DVT prophylaxis Z29.9
[2021-01-05] MEDS ORDERED: fentaNYL citrate 100 MCG/2 ML VIAL ONE (15:16)
[2021-01-05] MEDS ORDERED: HEPARIN (PORCINE) 1000 UNIT/ML 10 ML (CATH LAB USE ONLY) ONE (15:16)
[2021-01-05] MEDS ORDERED: niCARdipine HCL INJ 2.5 MG/ML 10 ML AMP ONE (15:16)
[2021-01-05] MEDS ORDERED: MIDAZOLAM HCL 1 MG/ML 2ML VIAL ONE ×2 (15:17→17:40)
[2021-01-05] MEDS ORDERED: NITROGLYCERIN/D5W 100MCG/ML 20ML SYR ONE (15:17)
--- NOTE | 2021-01-05 17:59 | Cardiac Catheterization ---
[facility] Data: Steward/Stewardess Third Cardiac Status Clinical evaluation leading to the procedure CAD Presenation: Stable angina Anginal Classification: CCS III Heart Failure: No Cardiogenic Shock within 24 Hours: No Cardiac Arrest within 24 Hours: No Imaging Studies Past 6 Months: Yes Stress Studies Past 6 Months: No Standard Exercise Test: No Stress Echocardiogram: No Stress Testing w/SPECT MPI: No Cardiac CTA: No Coronary Anatomy Dominant: Right Left Ventricular Angiography EF (%): n/a Diagnostic Physicians Name: David Jeffers MD Status: Elective Closure Device Percutaneous Entry Location: Radial Closure Device: Radial Band Recommendations: Management Recommendatons (as above) Cardiac Cath Procedure Full Procedure Date January 05, 2021 Pre-Procedure Diagnosis Pre-Procedure Diagnosis: Angina AUC Score AUC Score: 7 Post-Procedure Diagnosis Post-Procedure Diagnosis: Normal Coronary Arteries and Normal Intracardiac Pressures Procedure(s) Performed Procedure(s) Performed: Coronary Angiography and Left Heart Cath Edge Blacker David Jeffers MD Senior Assistant Manager(s) Andreina Pruitt Estimated Blood Loss Estimated Blood Loss: < 20 ml Medication(s) Medication(s): Fentanyl, Heparin, Lidocaine 1%, Nicardipine and Versed Summary of Findings Procedures: 1. Coronary angiography 2. Left heart catheterization 3. Moderate sedation Coronary angiography: 1. Left main coronary artery: No significant CAD. 2. Left anterior descending: Medium to large caliber vessel proximally to mid vessel. Mid to distal LAD small is small caliber. Small D1 and medium caliber D2. No significant CAD within the LAD system. 3. Circumflex: Proximally the circumflex is large in caliber. It extends distally within the AV groove as a small caliber vessel. Large OM1. No significant CAD within the circumflex system. 4. Right coronary artery: Medium to large in caliber. Dominant vessel. Initial angiography demonstrated that the 5 [place] diagnostic JR4 catheter was deeply seated within the RCA. The RCA appeared normal. After the catheter was repositioned, there was a smooth narrowing in the proximal portion of approximately 30%, likely representing catheter-induced spasm. PDA and PL without significant CAD. Left heart catheterization: 1. Left ventriculography was not performed. 2. No significant aortic stenosis. 3. LVEDP 4 mmHg. Moderate sedation: 1. Sedation start time: 5:33 p.m. 2. Sedation end time: 5:50 p.m. Impression: 1. No significant CAD. 2. Proximal RCA smooth narrowing after repositioning of the diagnostic catheter which was initially deeply engaged, likely represents catheter-induced spasm. 3. No significant aortic stenosis. 4. Low left-sided filling pressure. Plan: 1. Risk factor modification. 2. Further care as per Dr. Devine, her primary senior relationship manager. Hemodynamics Rest Ao:: 111/55 Final Ao: 103/52 LV: 101/0/4 Recommendations Recommendations: Management Recommendatons (as above) Specimens Specimens: None Radiation Exposure (mGy) 614 mGy. Fluoro time 4 min. Contrast (mls) 40 ml Procedural Complication(s) None Disposition PCU I attest to the content of the Intraoperative Record and any orders documented therein. Any exceptions are noted below. [facility] Card Cath Procedure Codes Cardiac Catheterization Procedure 1: Cardiovascular Cath Procedures: 97565 Coronaries and LHC (+/-LV) Moderate Sedation Procedure 1: Sedation/Anesthesia: 92445 Mod Sedation by the same physician;Init15 Min Child Age 5 & Up Procedure 3: Sedation/Anesthesia: 86419 Mod Sedation by the same physician; Ea [id number] Minutes PG Care Time/CCT Total # of Minutes Spent Total Time Spent with Patient: Total time spent is greater than 50% in coordination of care (as documented) at patient's floor/unit and/or counseling patient:
[2021-01-05] MEDS ORDERED: SODIUM CHLORIDE 0.9% 500 ML IV SCH (18:15)
--- NOTE | 2021-01-05 18:17 | Post Anesthesia Assessment ---
Date of Service January 05, 2021 Post Sedation Assessment Vital Signs Temp Pulse Pulse Resp BP BP Pulse Ox 01/05/21 18:10 36.9 C 50 L 18 95/61 L 92 01/05/21 15:20 68 16 121/53 L 98 01/05/21 15:05 37.0 C 52 L 19 102/65 94 01/05/21 11:10 36.9 C 56 L 19 119/74 96 01/05/21 07:17 36.7 C 53 L 18 102/60 94 01/05/21 02:35 36.3 C L 58 L 19 103/66 94 01/05/21 00:01 70 01/04/21 23:55 36.9 C 57 L 20 122/61 95 01/04/21 19:05 37.2 C 63 17 137/78 95 Recovery Score Activity: Moves 4 extremities Respiration: Deep Breath/Cough Circulation: +/-20% PreAnes Value Consciousness: Fully Awake Oxygen Saturation: O2 needed for >90% Discharge Sedation Level of Care: Fast Track Phase II Post Sedation Plan On clinical assessment, the patient appears to have tolerated the sedation without complications. Patient is recovering as anticipated. Patient will continue to be monitored by nursing and may be discharged when sedation discharge criteria are met per below protocol. Upon Completions of procedure up to 15 minutes continue every 5 minute vital signs and the P.A.R. score; then discharge to a Phase I or Fast Track to Phase II per the following guidelines: * Discharge Patient to appropriate Phase II area if PAR is 8 or greater or return to pre- procedure baseline. The post - procedure orders will be as directed. * If PAR score is less than 8 or not return to pre-procedure baseline then patient will follow Phase I monitoring till PAR is reached for Phase II. The Phase I may be done in procedure room or may call to secure a Phase I area. * If naloxone or flumazenil are used for reversal, hold in Phase I for continued monitoring from when last reversal dose was given for a minimum of 60 minutes or longer pending the nurse and/or physician discretion of patient condition before discharge to Phase II. Please call the Sedation Physician to re-evaluate and complete post-note for discharge to Phase II area. Do NOT discharge from procedure sedation or Phase 1 until post- sedation evaluation note is complete by procedure /sedation MD Sedation Discharge Instructions to be given to the patient at discharge to home.
[2021-01-05] MEDS: SIMVASTATIN 40 MG TAB PO SCH (20:00)
--- NOTE | 2021-01-05 22:18 | Communication Note ---
Date of Service: January 05, 2021 Called to bedside as patient lost only IV access that she has following cardiac catheterization earlier today. Patient refusing IV access despite advisement of potential risks associated with cardiac catheterization and potential for arrhythmias, stating "If you can't force me to have one, then I won't have one. They are uncomfortable." Patient verbalized understanding and agreement that we will continue to monitor the telemetry and that if this shows any concerning findings then we will likely have to place an IV for access to provide appropriate access. Resident Activity Tracking Resident Involvement: Resident Care Provided and Warp Placer Coverage Note Care Provided: Adult Hospital Medicine
[2021-01-06] MEDS: LEVOTHYROXINE SODIUM 100 MCG TABLET PO SCH (05:46)
[2021-01-06] MEDS: ASCORBIC ACID 500 MG TAB PO SCH (08:41)
[2021-01-06] MEDS: MONTELUKAST SODIUM 10 MG TABLET PO SCH (08:41)
[2021-01-06] MEDS: VITAMIN B COMPLEX TAB PO SCH (08:41)
[2021-01-06] MEDS: ASPIRIN 81 MG ECTAB PO SCH (08:41)
[2021-01-06] MEDS: NICOTINE 21 MG/24 HR TDSY TD SCH (08:41)
[2021-01-06] MEDS: SERTRALINE HCL 50 MG TABLET PO SCH (08:41)
[2021-01-06] MEDS: METOPROLOL TARTRATE 25 MG TAB PO SCH (08:42)
[2021-01-06] MEDS: PANTOprazole 40 MG TAB PO SCH (08:42)
[2021-01-06] MEDS: MULTIVITAMIN TAB PO SCH (08:42)
[2021-01-06] MEDS: ENOXAPARIN 80 MG/0.8 ML SYR SQ SCH (11:05)
--- NOTE | 2021-01-06 11:56 | Discharge Summary ---
Date of Service January 06, 2021 Admission HPI Per Admitting Provider This patient is a 60-year-old female with a [id number] smoking history, HTN, hyperlipidemia, hypothyroidism, migraines, and a positive family history in her mother of [place] in her 50s, who presents to the ER with 4 days of exertional chest heaviness associated with shortness of breath, diaphoresis, and lightheadedness that was relieved with rest. There is no radiation of the chest heaviness. She also describes 4 days of feeling heart palpitations like her heart is skipping a beat. She denies any rapid heartbeat or syncope. Before 4 days ago, she did not have any chest heaviness or chest pains except for an occasional sharp twinge of more left-sided chest pain which was nothing like it has been going on the last few days. She did not try taking anything to make it go away. Each time, the chest heaviness lasts about 20 minutes and goes away with rest. In the ER, her troponin was negative, CBC and CMP and lipase were otherwise unremarkable. Her Covid-19 testing was negative. Her chest x-ray was normal. Her ECG showed sinus rhythm, rate 68, with PACs, otherwise no ischemic changes. Her telemetry showed frequent PACs throughout our entire interview which were symptomatic. The ER physician discussed her care with the restorative coordinator on-call who recommended admission and possible cardiac catheterization versus stress test and given that she is high risk, consideration for therapeutic anticoagulation. Principal Diagnosis Chest pain, palpitations Discharge Exam Constitutional WD/WN, vitals as above Eyes PERRL, conjunctivae normal, anicteric sclerae ENMT external ear and nose normal, oropharynx normal Neck trachea midline, no thyromegaly Respiratory normal respiratory effort, lungs clear to auscultation Cardiovascular RRR, no murmur, no edema Gastrointestinal (Abdomen) normal bowel sounds, soft, nontender, no hepatosplenomegaly Musculoskeletal no cyanosis or clubbing, extremities motor strength 5/5 Skin no rashes, warm and dry Neurologic CN's II-XI intact bilaterally Discharge Data Allergies Allergy/AdvReac Type Severity Reaction Status Date / Time [id number]-vfrm Allergy Intermediate hives, Verified 07/29/20 10:28 [From Glu MobileovUsentric Autoinjector] vomiting balsam natalee Allergy Mild ITCHY Verified 07/29/20 10:28 boric acid Allergy Mild ITCHY Verified 07/29/20 10:28 formaldehyde Allergy Mild ITCHY Verified 07/29/20 10:28 mercaptopurine Allergy Mild ITCHY Verified 07/29/20 10:28 metronidazole Allergy Mild ITCHY Verified 07/29/20 10:28 talc Allergy Mild ITCHY Verified 07/29/20 10:28 zinc Allergy Mild ITCHY Verified 07/29/20 10:28 animal dander Allergy Unknown Verified 01/02/21 17:57 atorvastatin [From Lipitor] Allergy Unknown Verified 01/02/21 17:57 azithromycin Allergy Unknown Verified 01/02/21 17:57 carbamazepine [From Tegretol] Allergy Unresponsiv Verified 01/02/21 17:57 e divalproex sodium Allergy Unknown Verified 01/02/21 17:57 [From Depakote] duloxetine [From Cymbalta] Allergy Unknown Verified 01/02/21 17:57 house dust Allergy Unknown Verified 01/02/21 17:57 imipramine Allergy Unknown Verified 01/02/21 17:57 latex Allergy Unknown Verified 01/02/21 17:57 mold Allergy Unknown Verified 01/02/21 17:57 nickel Allergy Unknown Verified 01/02/21 17:57 nortriptyline Allergy Unknown Verified 01/02/21 17:57 omeprazole Allergy Unknown Verified 01/02/21 17:57 ragweed pollen Allergy Unknown Verified 01/02/21 17:57 sulfamethoxazole Allergy Unknown Verified 01/02/21 17:57 [From Bactrim] trimethoprim [From Bactrim] Allergy Unknown Verified 01/02/21 17:57 venlafaxine Allergy Unknown Verified 01/02/21 17:57 DIBROMODICYAMBUTANE Allergy Mild ITCHY Uncoded 07/29/20 10:28 PHENYLENEDIAMINE Allergy Mild blistering Uncoded 07/29/20 10:28 Potassium Dichromate Allergy Mild ITCHY Uncoded 07/29/20 10:28 Qudexy XR CS24 Allergy Unknown Unknown Uncoded 01/02/21 17:57 Consultations 01/02/21 17:41 ED Decision to Admit Stat 01/02/21 21:04 Consult Cardiology Routine Procedures Performed Operation Date: 01/05/21 08:00 Actual Procedures p Cath, Left with Cors and Vent - David Jeffers MD s Cineradiography w/Routine Exam - Jose Del Rio MD Ordered Studies 01/05/21 07:08 CL Cath Imgs for PACS use only Routine Hospital Course (1) Exertional chest pain: Typical for angina pectoris. Troponin series negative. Cardiology consultation appreciated. Statin dosage uptitrated. Continue aspirin and metoprolol. Left heart catheterization completed January 05 and was negative for critical stenosis (2) PAC (premature atrial contraction): Echo wnl. No regional wall motion abnormalities Cont metoprolol. Metoprolol replaces lisinopril (3) HTN (hypertension): Continue metoprolol which replaces lisinopril Controlled (4) Depression with anxiety: Stable Continue home lorazepam as needed and sertraline 150 mg p.o. once daily (5) Gastroesophageal reflux disease: PPI therapy (6) Hyperlipidemia: increased simvastatin to 40mg daily (7) Hypothyroidism: TSH normal in 09/2020 Continue home levothyroxine (8) Irritable bowel syndrome: No acute issues (9) Migraine, unspecified, not intractable, without status migrainosus: No acute issues Imitrex as needed although caution with concern of CAD (10) Obesity: BMI 31.2 (11) Smokes 1 pack of cigarettes per day: Nicoderm patch 21mg/24 hours patient motivated to quit wants to use nicoderm post-d/c (12) Vitamin B12 deficiency: Continue home B12 supplement (13) Vitamin D deficiency: Noted (14) Asthma: No acute issues Continue albuterol as needed (15) DVT prophylaxis: Lovenox Disposition: Home today, January 06 Total Time Total Time Spent Total Time Spent (In Minutes): 35 minutes Total Time Includes: Examination of the Patient, Discharge Planning and Medication Reconciliation Discharge Plan Discharge Items Reason For Visit: UNSTABLE ANGINA Condition on Discharge: Good Follow-up/Referrals: Angelika Topete MD [Primary Care Provider] - Addtl Attending Provider Instructions: ACTIVITY RECOMMENDATIONS: Excess manipulation of the wrist should be avoided for the next 24-48 hours. * No lifting over 2 pounds (approximately a 1/2 gallon of milk) with the utilized arm for 24 hours. * No strenuous activity such as bowling or tennis for 3 days. * Keep the site of the procedure covered with a bandage for 24 hours. *You may shower the day after the procedure. Do not take a tub bath or submerge the puncture site in water for the next 3 days. *Do not operate any motorized equipment for 3 days. SPECIAL CARE INSTRUCTIONS: The site may be slightly bruised and sore following your procedure. Should any of the following occur, contact the Dr. who performed your procedure. 1. Redness/inflammation, swelling, chills, or fever, or colored drainage at procedure site within 3-7 days after your procedure. 2. Coldness, discoloration, ongoing numbness, severe pain, or swelling. Expect mild tingling of hand and tenderness at the puncture site for up to three days. If this persists beyond three days, or other symptoms develop, notify the Dr. who performed your procedure. BLEEDING: If the procedure site on your wrist begins to bleed, do not panic 1. Place 1 or 2 fingers firmly just slightly above the insertion site to stop the bleeding. You may be able to feel your pulse as you hold pressure. 2. Lift your finger after 5 minutes to see if the bleeding has stopped. 3. Once the bleeding has stopped, gently wipe the wrist area clean with a bandage. * If the bleeding from your wrist does not stop after 10 minutes, or if there is a large amount of bleeding or spurting, call 911 (do not drive yourself to the hospital). SKIN IRRITATION: * You may experience some redness and/or swelling in the area where radiation was administered. If any skin irritation occurs, please contact your family physician. FOLLOW UP VISIT: 1. Keep any scheduled doctor appointments. Medications and DC Order Prescriptions: No Action levothyroxine 100 mcg tablet 100 mcg PO DAILY Qty: 30 RF: 5 simvastatin 20 mg tablet 20 mg PO QPM Qty: 30 RF: 5 albuterol sulfate [Ventolin HFA] 90 mcg/actuation HFA aerosol inhaler 2 puff inhalation .COMPLEX PRN (Reason: shortness of breath or wheezing) Qty: 8.5 RF: 3 sertraline 100 mg tablet 150 mg PO DAILY Qty: 135 RF: 1 lisinopril 10 mg tablet 10 mg PO DAILY Qty: 90 RF: 1 montelukast 10 mg tablet 10 mg PO DAILY Qty: 30 RF: 6 omeprazole 40 mg capsule,delayed release(DR/EC) 40 mg PO DAILY RF: 0 aspirin 81 mg tablet,delayed release (DR/EC) 81 mg PO DAILY RF: 0 vitamin B complex [B Complex-Vitamin B12] tablet 1 tab PO DAILY RF: 0 lorazepam 0.5 mg tablet 0.5 mg PO TID PRN (Reason: anxiety) RF: 0 Multiple Vitamin, Womens tablet 1 tab PO DAILY RF: 0 ascorbic acid (vitamin C) 500 mg capsule 500 mg PO DAILY RF: 0 triamcinolone acetonide 0.1 % cream 1 appln topical BID PRN (Reason: flare ups) Qty: 1 RF: 0 clobetasol 0.05 % cream 1 appln topical BID PRN (Reason: flare ups) RF: 0 sumatriptan succinate 6 mg/0.5 mL pen injector 6 mg subcut .COMPLEX Qty: 5 RF: 5 ondansetron HCl [Zofran] 4 mg tablet 4 mg PO BID PRN (Reason: nausea and vomiting) Qty: 30 RF: 3 meclizine 25 mg tablet 25 mg PO TID PRN (Reason: dizziness) Qty: 90 RF: 1 naproxen 500 mg tablet 500 mg PO BID PRN (Reason: pain) Qty: 30 RF: 1 baclofen 10 mg tablet 10 mg PO BID PRN (Reason: muscle spasm) Qty: 60 RF: 3 vitamin E 400 unit Tablet 0 unit PO DAILY RF: 0 Krames/Other Patient Handouts: Understanding the Mediterranean Diet Admission Data Admit Date/Time: 01/05/21 10:22 Attending Provider: Rodney Burgos Admit Provider: Roxi Hurst Primary Care Provider: Angelika Topete Other Providers: Roxi Hurst ; Yamil Devine Coding Level of Care Code D/C Day Management >30 mins Diagnoses Exertional chest pain R07.9 PAC (premature atrial contraction) I49.1 HTN (hypertension) I10 Depression with anxiety F41.8 Gastroesophageal reflux disease K21.9 Hyperlipidemia E78.5 Hypothyroidism E03.9 Irritable bowel syndrome K58.9 Migraine, unspecified, not intractable, without status migrainosus G43.909 Obesity E66.9 Smokes 1 pack of cigarettes per day F17.210 Vitamin B12 deficiency E53.8 Vitamin D deficiency E55.9 Asthma J45.909 DVT prophylaxis Z29.9
== END 2021-01-06 13:00 | disposition home or self-care (01) | DRG 287 ==
LOC: ED 15:04 → 2S 15:04 → SUATTDRO 19:13 → 2S 20:35